=== PATIENT | male | born 1950 | race Caucasian/White ===

== ENCOUNTER 2019-02-15 14:16 | Emergency (ER) | payer OTHER ==
[~2019-02-15] VITALS: Ht 175.3 cm; Wt 103.0 kg
[~2019-02-15 14:16] MED LIST: ASPI81EC; ASPI81EC PO; ATEN25; ATEN25 PO; FOLI1 PO; GABA100 PO; GLIP2.5ER PO; HYDACE10B PO; INSR10I SUBQ; METF500 PO; NITR.3SL; NITR.4TPA; [UNRECOGNIZED DRUG - CODE] TOP
[2019-02-15] MEDS ORDERED: ADAL40PEN SC (14:48)
[2019-02-15] MEDS ORDERED: ATOR80 PO (14:49)
[2019-02-15] MEDS ORDERED: ALBU90OI INH (14:49)
[2019-02-15] MEDS ORDERED: BUDE6HFA INH (14:50)
[2019-02-15] MEDS ORDERED: CALCIPOTRIENE60 G1 TOP (14:50)
[2019-02-15] MEDS ORDERED: Clobetasol Emol15 GM TOP (14:52)
[2019-02-15] MEDS ORDERED: CLOP75 PO (14:52)
[2019-02-15] MEDS ORDERED: DOCU100 PO (14:53)
[2019-02-15] MEDS ORDERED: Artificial Tear15 ML RIGHTEYE (14:53)
[2019-02-15] MEDS ORDERED: FURO20 PO (14:54)
[2019-02-15] MEDS ORDERED: DULO60 PO (14:54)
[2019-02-15] MEDS ORDERED: GABA400 PO (14:54)
[2019-02-15] MEDS ORDERED: NOVOLOG FL100 UNIT/1 SC (14:55)
[2019-02-15] MEDS ORDERED: BASAGLAR K100 UNIT/1 SC (14:55)
[2019-02-15] MEDS ORDERED: KETO15TC SC (14:56)
[2019-02-15 14:57] LABS: BASOPHILS ABSOLUTE AUTO 0.03 K/mm3 (0.00-0.23); BASOPHILS PERCENT AUTO 0 % (0-2); EOSINOPHILS ABSOLUTE AUTO 0.11 K/mm3 (0.00-0.68); EOSINOPHILS PERCENT AUTO 1 % (0-6); Hematocrit 45.1 % (37.0-53.0); Hemoglobin 14.8 g/dL (13.5-17.5); IMMATURE GRAN ABSOLUTE AUTO 0.02 K/mm3 (0.00-0.10); IMMATURE GRAN PERCENT AUTO 0 % (0-1); LYMPHOCYTES ABSOLUTE AUTO 2.52 K/mm3 (0.84-5.20); LYMPHOCYTES PERCENT AUTO 30 % (21-46); MONOCYTES ABSOLUTE AUTO 0.72 K/mm3 (0.16-1.47); MONOCYTES PERCENT AUTO 9 % (4-13); Mean Corpuscular HGB 31.2 pg (26.0-34.0); Mean Corpuscular HGB Conc 32.8 g/dL (31.5-36.5); Mean Corpuscular Volume 95 fL (80-100); Mean Platelet Volume 10.3 fL (9.1-12.4); NEUTROPHILS ABSOLUTE AUTO 5.06 K/mm3 (1.96-9.15); NEUTROPHILS PERCENT AUTO 60 % (41-73); Platelet Count 120 K/mm3 (150-400); RDW Coefficient Variation 13.8 % (11.7-14.2); RDW Standard Deviation 48.3 fL (35.1-46.3); Red Blood Cell Count 4.75 M/mm3 (4.30-5.90); White Blood Cell Count 8.46 K/mm3 (4.00-11.30)
[2019-02-15] MEDS ORDERED: Ketoconazole120 ML TOP (14:57)
[2019-02-15] MEDS ORDERED: LUBRICANT EYE RIGHTEYE (14:58)
[2019-02-15] MEDS ORDERED: Metformin HCl1000 MG PO (14:59)
[2019-02-15] MEDS ORDERED: Primidone50 MG PO (14:59)
[2019-02-15] MEDS ORDERED: PROP120ER PO (14:59)
[2019-02-15] MEDS ORDERED: TERA5 PO (15:00)
[2019-02-15] MEDS ORDERED: RANOLAZINE ER1000 MG PO (15:00)
[2019-02-15] MEDS ORDERED: Norco 7.5-3251 EACH PO (17:06)
== END 2019-02-15 17:48 | disposition home or self-care (01) ==
LOC: ER 14:16
PROVIDERS: Emergency Medicine
DX: R55 Syncope and collapse (principal); S20.211A Contusion of right front wall of thorax, initial encounter; S30.1XXA Contusion of abdominal wall, initial encounter; W01.10XA Fall on same level from slipping, tripping and stumbling with subsequent striking against unspecified object, initial encounter; Z88.8 Allergy status to other drugs, medicaments and biological substances; Z79.899 Other long term (current) drug therapy; Z79.4 Long term (current) use of insulin; E11.9 Type 2 diabetes mellitus without complications; I25.10 Atherosclerotic heart disease of native coronary artery without angina pectoris; I10 Essential (primary) hypertension; F17.200 Nicotine dependence, unspecified, uncomplicated
CPT/HCPCS: 71046; 76700; 85025; 93005; 93010; 96374; 96375; 99285-25; J1170; J2405

== ENCOUNTER 2019-12-12 13:48 | Inpatient (IN) | payer OTHER ==
[~2019-12-12] VITALS: Ht 175.3 cm; Wt 98.8 kg
[~2019-12-12 13:48] MED LIST changes: +ADAL40PEN SC; +ALBU90OI INH; +ATOR80 PO; +Artificial Tear15 ML RIGHTEYE; +BASAGLAR K100 UNIT/1 SC; +BUDE6HFA INH; +CALCIPOTRIENE60 G1 TOP; +CLOP75 PO; +Clobetasol Emol15 GM TOP; +DOCU100 PO; +DULO60 PO; +FURO20 PO; +GABA400 PO; +KETO15TC SC; +Ketoconazole120 ML TOP; +LUBRICANT EYE RIGHTEYE; +Metformin HCl1000 MG PO; +NOVOLOG FL100 UNIT/1 SC; +Norco 7.5-3251 EACH PO; +PROP120ER PO; +Primidone50 MG PO; +RANOLAZINE ER1000 MG PO; +TERA5 PO
[2019-12-12 14:13] LABS: BASOPHILS ABSOLUTE AUTO 0.03 K/mm3 (0.00-0.23); BASOPHILS PERCENT AUTO 0 % (0-2); EOSINOPHILS ABSOLUTE AUTO 0.08 K/mm3 (0.00-0.68); EOSINOPHILS PERCENT AUTO 1 % (0-6); Hematocrit 45.2 % (37.0-53.0); Hemoglobin 14.8 g/dL (13.5-17.5); IMMATURE GRAN ABSOLUTE AUTO 0.02 K/mm3 (0.00-0.10); IMMATURE GRAN PERCENT AUTO 0 % (0-1); LYMPHOCYTES ABSOLUTE AUTO 2.35 K/mm3 (0.84-5.20); LYMPHOCYTES PERCENT AUTO 32 % (21-46); MONOCYTES ABSOLUTE AUTO 0.72 K/mm3 (0.16-1.47); MONOCYTES PERCENT AUTO 10 % (4-13); Mean Corpuscular HGB 30.2 pg (26.0-34.0); Mean Corpuscular HGB Conc 32.7 g/dL (31.5-36.5); Mean Corpuscular Volume 92 fL (80-100); Mean Platelet Volume 9.6 fL (9.1-12.4); NEUTROPHILS PERCENT AUTO 57 % (41-73); Platelet Count 123 K/mm3 (150-400); RDW Coefficient Variation 14.9 % (11.7-14.2)
[2019-12-12] MEDS ORDERED: HUMIRA PEN40 MG/0.2 SC (14:15)
[2019-12-12] MEDS ORDERED: CLOP75 PO (14:16)
[2019-12-12] MEDS ORDERED: DOCU100 PO (14:16)
[2019-12-12] MEDS ORDERED: SYMBICORT 160-4.6 GM INH (14:16)
[2019-12-12] MEDS ORDERED: ATORVASTATIN CA40 MG PO (14:16)
[2019-12-12] MEDS ORDERED: DULO60 PO (14:16)
[2019-12-12] MEDS ORDERED: JARDIANCE25 MG PO (14:17)
[2019-12-12] MEDS ORDERED: FURO20 PO (14:17)
[2019-12-12] MEDS ORDERED: GABA400 PO (14:17)
[2019-12-12] MEDS ORDERED: BASAGLAR K100 UNIT/1 SC (14:18)
[2019-12-12] MEDS ORDERED: NOVOLOG FL100 UNIT/3 SC ×2 (14:18→14:19)
[2019-12-12] MEDS ORDERED: NOVOLOG100 UNIT/2 SC (14:19)
[2019-12-12] MEDS ORDERED: GLUCOPHAGE1000 MG PO (14:19)
[2019-12-12] MEDS ORDERED: PROP80ER PO (14:20)
[2019-12-12] MEDS ORDERED: TAMS.4ER PO (14:20)
[2019-12-12] MEDS ORDERED: RANOLAZINE ER1000 M1 PO (14:20)
[2019-12-12] MEDS ORDERED: Primidone50 MG PO (14:20)
[2019-12-12] MEDS ORDERED: SPIRIVA RESPIMAT4 G3 INH (14:21)
[2019-12-12 14:28] LABS: Prothrombin Time Results 10.7 Sec (9.7-11.5)
[2019-12-12 14:35] LABS: Troponin I <0.015 ng/mL (0.000-0.040)
[2019-12-12 14:44] LABS: Alanine Aminotransfer (ALT/SGP 20 U/L (12-78); Albumin, Blood 3.7 g/dL (3.4-5.0); Albumin/Globulin Ratio 1.2 (0.8-1.8); Alk Phos 100 U/L (50-136); Anion Gap 9 mmol/L (6-16); Aspartate Aminotrans (AST/SGOT 8 U/L (12-37); Bilirubin, Total 0.7 mg/dL (0.1-1.0); Blood Urea Nitrogen 19 mg/dL (8-24); CO2, Blood 22 mmol/L (21-32); Calcium, Blood 8.6 mg/dL (8.5-10.1); Chloride, Blood 99 mmol/L (98-108); Creatinine, Blood 1.46 mg/dL (0.60-1.20); Globulin, Blood 3.2 g/dL (2.2-4.0); Glomerular Filtration Rate 51 (60-); Glucose, Blood 681 mg/dL (70-99); Potassium, Blood 5.2 mmol/L (3.5-5.5); Sodium, Blood 130 mmol/L (136-145); Total Protein, Blood 6.9 g/dL (6.4-8.2)
[2019-12-12 16:33] LABS: CPK Creatine Kinase 64 U/L (39-308); Troponin I <0.015 ng/mL (0.000-0.040)
--- NOTE | 2019-12-12 19:09 | NUR ---
SUMMARY Assumed care of pt upon arrival to ICU 2 from [facility] at 1539. Pt taken back to [facility] from emergency department for STEMI work up. Per report from geotechnical laboratory technician staff, no intervention performed during angiogram. On arrival to unit, pt states he is free of chest pain. Pt A&O x 4. Answers questions, follows commands, verbalizes needs. Lungs clear, dim in bases. Pt on 4 LPM NC, which is home dose of O2. SpO2 90% or greater. Pt has sheath in place to right femoral artery. Dressing C/D/I. No bruising, drainage, or hematoma at site. Color, sensation, pulses, capillary refill equal BLE. HR 70s-80s. BP stable. Pt voids into urinal without difficulty. This RN placed call to Dr Fraire at 1645 to discuss blood sugars. Provider not available. Call placed to provider again at 1745; provider not available. Provider reached by charge authorizerJhonathan at 1800. Hospitalist consult ordered. Dr Ledezma in to see pt. High SS Humalog given to patient. Pt provided with finger food tray. Additional orders for blood sugar management placed by provider. Bedside report given to mail order sorter Peyton CRUZ. Groin site assessed by this RN with oncoming RN.
--- NOTE | 2019-12-12 19:30 | NUR ---
ASSUMED CARE OF PATIENT. REPORT RECEIVED FROM OFFGOING RN. RIGHT FEMORAL GROIN SITE ASSESSED BY BOTH RN'S, INCLUDING PULSE CHECK; SITE WNL. PATIENT FINISHING DINNER AT THIS TIME. PTT WNL TO PULL SHEATH. 2044: SHEATH PULLED PER MD ORDER; MANUAL PRESSURE APPLIED X 15 MINUTES WITH HEMOSTASIS ACHIEVED; NO HEMATOMA NOTED; GAUZE 4X4 AND TEGADERM DRESSING APPLIED; PATIENT TOLERATED PROCEDURE WELL. SITE ASSESSED Q15 MINUTES FOR THE NEXT 60 MINUTES.
--- NOTE | 2019-12-12 22:59 | NUR ---
2259: PATIENT'S RHYTHM CHANGED TO ST VERSUS ATRIAL FLUTTER, RATE 120'S; BP STABLE. 2310: PATIENT C/O CHEST PAIN, RIGHT TO MIDDLE WHICH INCREASES WITH INSPIRATION, DESCRIBES SHARP PAIN, RATED 6-7/10. 2315: OBTAINED EKG. 2325: CALLED DR. GUERRA WITH ABOVE INFORMATION. REC'D. ORDER TO GIVEN PATIENT DILTIAZEM 10MG IVP X 2 DOSES, IF FIRST DOSE INEFFECTIVE FOR HR;IF AFTER TWO DOSES OF IV PUSH DILTIAZEM GIVEN AND HR STILL TACHY, START DILTIAZEM DRIP IV AT 10MG /HR; IF CHEST PAIN PERSISTS, MORPHINE SULFATE 2MG IV X 1 DOSE PRN. 2345: PATIENT GIVEN FIRST DOSE OF DILTIAZEM 10MG IVP; HR HIGH 90'S; C.P. 6/10. 0020: PATIENT GIVEN SECOND DOSE OF DILTIAZEM 10MG IVP; HR MID 90'S; C.P. 3/10.
[2019-12-13 00:26] LABS: Troponin I 0.123 ng/mL (0.000-0.040)
--- NOTE | 2019-12-13 00:45 | NUR ---
0045: PATIENT APPEARS TO BE SLEEPING COMFORTABLE. BP STABLE. HR REMAINS LOW TO MID 90'S.
--- NOTE | 2019-12-13 06:12 | NUR ---
SHIFT SUMMARY: PATIENT SLEPT MOST OF THE NIGHT. NO CHEST PAIN REPORTED SINCE 0; RHYTHM SR WITH BBB, RATE 90'S. RIGHT GROIN SITE SOFT, NO HEMATOMA NOTED; DRESSING D/I. OXYGEN REMAINS AT 4L/MIN VIA NASAL CANNULA (PATIENT'S HOME O2 AMOUNT) WITH SATS LOW 90'S. CONTINUE CURRENT POC.
[2019-12-13 08:40] LABS: Hematocrit 48.4 % (37.0-53.0); Mean Corpuscular HGB 30.3 pg (26.0-34.0); Mean Corpuscular HGB Conc 33.1 g/dL (31.5-36.5); Mean Corpuscular Volume 92 fL (80-100); Mean Platelet Volume 9.6 fL (9.1-12.4); Platelet Count 128 K/mm3 (150-400); RDW Coefficient Variation 15.2 % (11.7-14.2); RDW Standard Deviation 50.6 fL (35.1-46.3); Red Blood Cell Count 5.28 M/mm3 (4.30-5.90)
[2019-12-13 08:53] LABS: Anion Gap 9 mmol/L (6-16); Blood Urea Nitrogen 18 mg/dL (8-24); Bun/Creatinine Ratio 15.1 (12.0-20.0); CO2, Blood 22 mmol/L (21-32); Calcium, Blood 8.6 mg/dL (8.5-10.1); Chloride, Blood 104 mmol/L (98-108); Creatinine, Blood 1.19 mg/dL (0.60-1.20); Glomerular Filtration Rate >60 (60-); Glucose, Blood 372 mg/dL (70-99); Potassium, Blood 4.7 mmol/L (3.5-5.5); Sodium, Blood 135 mmol/L (136-145)
[2019-12-13 09:13] LABS: Creatine Kinase MB 4.4 ng/mL (0.0-3.6); Creatine Kinase MB Index 7.5 (0.0-4.0)
[2019-12-13 09:31] LABS: Troponin I 0.515 ng/mL (0.000-0.040)
--- NOTE | 2019-12-13 11:39 | NUR ---
Echocardiogram completed.
--- NOTE | 2019-12-13 11:52 | NUR ---
REASSESSMENT PT GOT UP INTO THE CHAIR THIS MORNING AND HAS BEEN SITTING UP SINCE. HIS GROIN SITES REMAIN STABLE. THERE IS ONE SPOT ON THE OUTER EDGE THAT WAS TENDER TO PALPATION AND STILL IS, BUT THAT SITE IS STILL SOFT AND HAS NOT GROWN. LUNGS ARE DIM BUT CLEAR, ON HOME O2 OF 4L/NC. REMAINS SR/ST IN THE 90-LOW 100S, RECEIVING PO DILTIAZEM. NO EPISODES OF CHEST PAIN. VOIDING WITHOUT DIFFICULTY. EATING AND DRINKING. BLOOD SUGAR WAS ELEVATED AT LUNCH AGAIN. DISCUSSED WITH DR. CHAUDHRY. PT GOT HIS LONG ACTING INSULIN ONLY A COUPLE HOURS AGO SO GIVE SS DOSE AND CONTINUE TO MONITOR.
[2019-12-13 17:03] LABS: Troponin I 0.735 ng/mL (0.000-0.040)
--- NOTE | 2019-12-13 17:03 | NUR ---
SHIFT SUMMARY PT HAS DONE WELL THROUGHOUT THE DAY WITH NO EPISODES OF SVT OR CHEST PAIN. HE HAS BEEN SR-ST WITH RATES IN THE 90 TO LOW 100S, BP HAS BEEN STABLE. R GROIN SITE REMAINS C/D/I, SOFT WITH NO HEMATOMA. HE HAS AMBULATED IN THE ROOM AND SPENT THE MAJORITY OF THE DAY SITTING UP IN THE CHAIR. STILL WEARING 4L/NC, WHICH HE WEARS AT HOME. HIS SPO2 DID DROP DOWN TO 86 AND QUICKLY BAKC UP TO THE 90S WHILE HE DOZED AT ONE POINT, BUT HE DIDN'T MAINTAIN SPO2 LESS THAN 90 EVER. PT IS EATING WELL, BLOOD SUGAR A LITTLE BETTER THIS AFTERNOON IN THE 300S. PT SPOKE WITH FAMIL AND FRIENDS UPDATING THEM HIMSELF THIS AFTERNOON. HE REFUSED A BATH BUT TOOK OFFERED WARM WASHCLOTHS TO CLEAN A LITTLE BIT. CONTINUING TO MONITOR.
--- NOTE | 2019-12-13 20:00 | NUR ---
ASSUMED CARE: PT A&O, AWAKE IN CHAIR. IN ST AT TIMES. HR 90-100S, SBP 100-110S. DENIES CHEST PAIN AT THIS TIME. LUNG SOUNDS DIM T/O. ON 4L NC. DOES DESAT AT TIMES BUT COMES UP ABOVE 90% QUICKLY. HE DOES BECOME DYSPNEIC WITH EXERTION. CAN STAND AND AMBULATE WITH ASSISTANCE. USING URINAL ON OWN. BILAT PIV. PATENT AND SL. R GROIN ACCESS SITE IS SOFT, NONTENDER. NO OOZING OR HEMATOMA PRESENT. DRESSING IS C/D/I. WILL CONTINUE TO MONITOR
--- NOTE | 2019-12-14 00:01 | NUR ---
PT RESTING COMFORTABLY AT THIS TIME. R GROIN SITE TENDER, SOFT. DRESSING IS C/D/I. SOME BRUISING TO AREA. NO OOZING OR BLEEDING. WILL CONTINUE TO MONITOR
[2019-12-14 03:41] LABS: Anion Gap 6 mmol/L (6-16); Blood Urea Nitrogen 25 mg/dL (8-24); CO2, Blood 25 mmol/L (21-32); Calcium, Blood 8.4 mg/dL (8.5-10.1); Chloride, Blood 104 mmol/L (98-108); Creatinine, Blood 1.25 mg/dL (0.60-1.20); Glomerular Filtration Rate >60 (60-); Glucose, Blood 246 mg/dL (70-99); Sodium, Blood 135 mmol/L (136-145)
--- NOTE | 2019-12-14 04:19 | NUR ---
PT RESTING COMFORTABLY. NO COMPLAINTS SO FAR. DENIES CP, SOB
--- NOTE | 2019-12-14 05:43 | NUR ---
SHIFT SUMMARY: NO ACUTE CHANGES T/O SHIFT. PT SLEPT MAJORITY OF SHIFT. HR IN THE 80S, SBP 100-120S. IN LBBB. REMAINS ON 4L NC. R FEM ACCESS SITE UNCHANGED T/O SHIFT. PEDAL PULSES PRESENT BILAT. DRESSING TO R GROIN SITE C/D/I. WILL PASS REPORT TO ONCOMING SHIFT
--- NOTE | 2019-12-14 08:27 | NUR ---
ASSUMED CARE OF PT AT 0700. REPORT FROM DEE DEE CRUZ. PT RESTING IN BED. WAKES c VERBAL STIMULI. STANDBY ASSIST UP TO CHAIR FOR BREAKFAST. PT DENIES CHEST PAIN, SOB OR OTHER SYMPTOMS. A&OX 4. ANSWERS QUESTIONS APPROPRIATELY. FOLLOWS COMMANDS. LUNGS DIMINISHED IN BASES. PT ON 4L VIA NC, HUMIDIFIED. PT P/W/D. DRESSING TO RIGHT FEMORAL GROIN, C/D/I, NON TENDER. BRUISING IN AREA, SOFT. VSS. PT STATUS CHANGED TO PCU. TROPONINS q8 UNTIL TRENDING DOWN. CHEMBG DISCUSSED c DR CHAUDHRY, PT TAKES JARDIANCE AT HOME, UNABLE TO GET THIS MED DURING THIS ADMISSION. WILL CONTINUE TO MONITOR.
--- NOTE | 2019-12-14 14:24 | NUR ---
ASSUMING CARE OF PT. REPORT FROM IGNACIO. PT SITTING UP IN CHAIR. 4L O2 VIA NC. R GROIN SITE IS STABLE. BRUISING AROUND THE SITE REVIEWED WITH IGNACIO CRUZ AND IS UNCHANGED. NO REQUESTS, CALL LIGHT IN REACH.
--- NOTE | 2019-12-14 18:19 | NUR ---
PT UP TO CHAIR TALKING ON PHONE. R GROIN SITE REMAINS STABLE. NO ACUTE CHANGES SINCE ASSUMING CARE OF PT. PT USES CALL LIGHT APPROPRIATELY. NO SIGN OF DISTRESS.
--- NOTE | 2019-12-14 20:00 | NUR ---
ASSUMED CARE: PT A&O. AWAKE IN CHAIR WATCHING TV. IN SR. HR IN THE 80S, SBP IN THE 150S. LUNGS CLEAR, DIM IN BASES. PT HAS AN OCC COUGH. ON 4L NC. USING URINAL ON OWN. BILAT PIV IN EACH ARM. PATENT AND SL. PT ABLE TO STAND ON OWN. R GROIN ACCESS SITE DRESSING C/D/I. NO OOZING OR BLEEDING AT SITE. GROIN IS SOFT AND NONTENDER. PEDAL PULSES PRESENT BILAT. PT DENIES CP OR SOB (EXCEPT ON EXERTION). WILL CONTINUE TO MONITOR
--- NOTE | 2019-12-15 05:58 | NUR ---
SHIFT SUMMARY: PT SLEPT MAJORITY OF SHIFT. NO ACUTE CHANGES T/O SHIFT. PT IS PLEASANT AND COOPERATIVE WITH ALL CARE. R GROIN SITE REMAINS UNCHANGED T/O SHIFT. DRESSING REMAINS C/D/I. WILL PASS REPORT TO ONCOMING RN
[2019-12-15] MEDS ORDERED: DILT180 PO (08:11)
[2019-12-15] MEDS ORDERED: NITROGLYCERIN TOP (08:16)
--- NOTE | 2019-12-15 10:21 | NUR ---
ASSUMED CARE OF PT AT 0700. REPORT FROM DEE DEE CRUZ. PT RESTING IN CHAIR. A&OX 4. DENIES CHEST PAIN, SOB OR OTHER COMPLAINTS. LUNGS DIMINISHED IN BASES. PT P/W/D. 4L O2 VIA NC, O2 SATS >93%. VSS. DRESSING TO RIGHT FEMORAL ACCESS C/D/I. SOFT, NON TENDER. BRUISING UNCHANGED SINCE YESTERDAY. DR HAUSER AND DR CHAUDHRY ROUNDED. D/C ORDERS WRITTEN. CALL PLACED TO [facility] FOR F/U, [facility] WILL CALL PT D/T AUTHORIZATION ISSUES. [facility] PT VERBALIZED UNDERSTANDING OF D/C INSTRUCTIONS. OTD NAD. ALL BELONGINGS HOME c PT.
== END 2019-12-15 10:15 | disposition home or self-care (01) | DRG 281 ==
LOC: ER 13:48 → ICUE 14:26 → ICUW 14:26 → ICUE 14:33
PROVIDERS: Emergency Medicine; Hospitalist; Internal Medicine; ADMIT Internal Medicine Interventional Cardiology
PROC: 4A023N7 Measurement of Cardiac Sampling and Pressure, Left Heart, Percutaneous Approach (ICD-10-PCS; principal; 2019-12-12)
PROC: B211YZZ Fluoroscopy of Multiple Coronary Arteries using Other Contrast (ICD-10-PCS; 2019-12-12)
PROC: B218YZZ Fluoroscopy of Left Internal Mammary Bypass Graft using Other Contrast (ICD-10-PCS; 2019-12-12)
PROC: B518YZZ Fluoroscopy of Superior Vena Cava using Other Contrast (ICD-10-PCS; 2019-12-12)
DX: I21.3 ST elevation (STEMI) myocardial infarction of unspecified site (principal); I47.1 Supraventricular tachycardia; E87.1 Hypo-osmolality and hyponatremia; N17.9 Acute kidney failure, unspecified; E11.40 Type 2 diabetes mellitus with diabetic neuropathy, unspecified; I10 Essential (primary) hypertension; E11.65 Type 2 diabetes mellitus with hyperglycemia; E78.5 Hyperlipidemia, unspecified; J44.9 Chronic obstructive pulmonary disease, unspecified; I25.10 Atherosclerotic heart disease of native coronary artery without angina pectoris; Z95.1 Presence of aortocoronary bypass graft; I44.7 Left bundle-branch block, unspecified; Z87.891 Personal history of nicotine dependence; Z79.02 Long term (current) use of antithrombotics/antiplatelets; Z79.899 Other long term (current) drug therapy; Z99.81 Dependence on supplemental oxygen
CPT/HCPCS: 36415; 71045; 80048; 80053; 82550; 82553; 82947; 84484; 85025; 85027; 85347; 85610; 85730; 93005; 93010; 93306; 93455; 94640; 94760; 96374-59; 97162; 97165; 97535; 99152; 99153; 99285-25; A9270-GY; C1769; C1887; C1894; G0278; J1644; J2250; J2270; J3010; J7030; Q9967

== ENCOUNTER 2020-02-24 13:51 | Emergency (ER) | payer OTHER ==
[~2020-02-24] VITALS: Ht 177.8 cm; Wt 99.8 kg
[~2020-02-24 13:51] MED LIST changes: +ATORVASTATIN CA40 MG PO; +DILT180 PO; +GLUCOPHAGE1000 MG PO; +HUMIRA PEN40 MG/0.2 SC; +JARDIANCE25 MG PO; +NITROGLYCERIN TOP; +NOVOLOG FL100 UNIT/3 SC; +NOVOLOG100 UNIT/2 SC; +PROP80ER PO; +RANOLAZINE ER1000 M1 PO; +SPIRIVA RESPIMAT4 G3 INH; +SYMBICORT 160-4.6 GM INH; +TAMS.4ER PO
[2020-02-24 14:15] LABS: Base Excess Venous -6.4 mmol/L; PCO2 Venous 34.1 mmHg (38-42); PO2 Venous 96.2 mmHg (38-42); pH Blood Venous 7.36 (7.34-7.37)
[2020-02-24 14:33] LABS: BASOPHILS ABSOLUTE AUTO 0.03 K/mm3 (0.00-0.23); BASOPHILS PERCENT AUTO 0 % (0-2); EOSINOPHILS ABSOLUTE AUTO 0.11 K/mm3 (0.00-0.68); EOSINOPHILS PERCENT AUTO 1 % (0-6); Hematocrit 46.4 % (37.0-53.0); Hemoglobin 14.9 g/dL (13.5-17.5); IMMATURE GRAN ABSOLUTE AUTO 0.02 K/mm3 (0.00-0.10); IMMATURE GRAN PERCENT AUTO 0 % (0-1); LYMPHOCYTES ABSOLUTE AUTO 2.17 K/mm3 (0.84-5.20); LYMPHOCYTES PERCENT AUTO 29 % (21-46); MONOCYTES ABSOLUTE AUTO 0.72 K/mm3 (0.16-1.47); MONOCYTES PERCENT AUTO 10 % (4-13); Mean Corpuscular HGB 30.3 pg (26.0-34.0); Mean Corpuscular HGB Conc 32.1 g/dL (31.5-36.5); Mean Corpuscular Volume 94 fL (80-100); NEUTROPHILS ABSOLUTE AUTO 4.56 K/mm3 (1.96-9.15); NEUTROPHILS PERCENT AUTO 60 % (41-73); Platelet Count 121 K/mm3 (150-400); RDW Coefficient Variation 14.6 % (11.7-14.2); RDW Standard Deviation 50.1 fL (35.1-46.3); Red Blood Cell Count 4.92 M/mm3 (4.30-5.90); White Blood Cell Count 7.61 K/mm3 (4.00-11.30)
[2020-02-24 14:51] LABS: Alanine Aminotransfer (ALT/SGP 16 U/L (12-78); Albumin, Blood 3.5 g/dL (3.4-5.0); Albumin/Globulin Ratio 1.1 (0.8-1.8); Alk Phos 92 U/L (50-136); Anion Gap 7 mmol/L (6-16); Aspartate Aminotrans (AST/SGOT 13 U/L (12-37); Bilirubin, Total 0.6 mg/dL (0.1-1.0); Blood Urea Nitrogen 26 mg/dL (8-24); Bun/Creatinine Ratio 21.7 (12.0-20.0); CO2, Blood 20 mmol/L (21-32); Calcium, Blood 9.2 mg/dL (8.5-10.1); Chloride, Blood 108 mmol/L (98-108); Globulin, Blood 3.1 g/dL (2.2-4.0); Glomerular Filtration Rate >60 (60-); Glucose, Blood 256 mg/dL (70-99); Potassium, Blood 4.5 mmol/L (3.5-5.5); Sodium, Blood 135 mmol/L (136-145); Total Protein, Blood 6.6 g/dL (6.4-8.2)
[2020-02-24 16:11] LABS: Source, Urine Clean Catch
[2020-02-24 16:16] LABS: Bilirubin, Urine Neg (Neg); Blood, Urine Neg (Neg); Glucose Qualitative, Urine 4+ (Neg); Ketones, Urine Neg (Neg); Leukocyte Esterase, Urine Neg (Neg); Nitrite, Urine Neg (Neg); Protein, Urine Neg (Neg); Urobilinogen, Urine NORM (Normal)
[2020-02-24 16:24] LABS: Appearance, Urine Clear (Clear); Color, Urine Yellow (P-Yellow)
[2020-02-24 16:30] LABS: U Amphetamine Screen Not Detected; U Barbituate Screen Not Detected; U Benzodiazapine Screen Not Detected; U Buprenorphine Screen Not Detected; U Cannabinoids Screen Not Detected; U Cocaine Screen Not Detected; U Methadone Screen Not Detected; U Methamphetamine Screen Not Detected; U Opiates Screen Not Detected; U Oxycodone Screen Not Detected; U Phencyclidine Screen Not Detected; U Propoxyphene Screen Not Detected
[2020-02-24] MEDS ORDERED: NOVOLOG FL100 UNIT/3 SC (16:43)
[2020-02-24] MEDS ORDERED: RANO500T PO (16:44)
== END 2020-02-24 17:55 | disposition home or self-care (01) ==
LOC: ER 13:51
PROVIDERS: Emergency Medicine
DX: E11.65 Type 2 diabetes mellitus with hyperglycemia (principal); E11.42 Type 2 diabetes mellitus with diabetic polyneuropathy; I10 Essential (primary) hypertension; I25.2 Old myocardial infarction; E78.5 Hyperlipidemia, unspecified; J44.9 Chronic obstructive pulmonary disease, unspecified; I25.810 Atherosclerosis of coronary artery bypass graft(s) without angina pectoris; Z95.1 Presence of aortocoronary bypass graft; Z87.891 Personal history of nicotine dependence; Z79.899 Other long term (current) drug therapy; Z79.4 Long term (current) use of insulin; Z79.02 Long term (current) use of antithrombotics/antiplatelets; Z88.8 Allergy status to other drugs, medicaments and biological substances
CPT/HCPCS: 36415; 70450; 71045; 80053; 81003; 82803; 82947; 84484; 85025; 93005; 93010; 96360; 99285-25; J7030

== ENCOUNTER 2020-06-19 17:39 | Emergency (ER) | payer OTHER, MEDICARE ==
[~2020-06-19] VITALS: Ht 177.8 cm; Wt 151.9 kg
[~2020-06-19 17:39] MED LIST changes: -ATORVASTATIN CA40 MG PO; -DILT180 PO; -GLUCOPHAGE1000 MG PO; -HUMIRA PEN40 MG/0.2 SC; -JARDIANCE25 MG PO; -NITROGLYCERIN TOP; -NOVOLOG100 UNIT/2 SC; -PROP80ER PO; -SPIRIVA RESPIMAT4 G3 INH; -SYMBICORT 160-4.6 GM INH; -TAMS.4ER PO
[2020-06-19 18:47] LABS: BASOPHILS ABSOLUTE AUTO 0.05 K/mm3 (0.00-0.23); BASOPHILS PERCENT AUTO 1 % (0-2); EOSINOPHILS ABSOLUTE AUTO 0.15 K/mm3 (0.00-0.68); EOSINOPHILS PERCENT AUTO 2 % (0-6); Hematocrit 46.5 % (37.0-53.0); Hemoglobin 14.7 g/dL (13.5-17.5); IMMATURE GRAN ABSOLUTE AUTO 0.02 K/mm3 (0.00-0.10); IMMATURE GRAN PERCENT AUTO 0 % (0-1); LYMPHOCYTES ABSOLUTE AUTO 2.19 K/mm3 (0.84-5.20); LYMPHOCYTES PERCENT AUTO 35 % (21-46); MONOCYTES ABSOLUTE AUTO 0.62 K/mm3 (0.16-1.47); MONOCYTES PERCENT AUTO 10 % (4-13); Mean Corpuscular HGB 29.5 pg (26.0-34.0); Mean Corpuscular HGB Conc 31.6 g/dL (31.5-36.5); Mean Corpuscular Volume 93 fL (80-100); Mean Platelet Volume 10.1 fL (9.1-12.4); NEUTROPHILS ABSOLUTE AUTO 3.32 K/mm3 (1.96-9.15); NEUTROPHILS PERCENT AUTO 52 % (41-73); Platelet Count 129 K/mm3 (150-400); RDW Coefficient Variation 15.2 % (11.7-14.2); RDW Standard Deviation 51.6 fL (35.1-46.3); Red Blood Cell Count 4.99 M/mm3 (4.30-5.90); White Blood Cell Count 6.35 K/mm3 (4.00-11.30)
[2020-06-19 19:18] LABS: Alanine Aminotransfer (ALT/SGP 17 U/L (12-78); Albumin, Blood 3.7 g/dL (3.4-5.0); Albumin/Globulin Ratio 1.3 (0.8-1.8); Alk Phos 83 U/L (50-136); Anion Gap 7 mmol/L (6-16); Aspartate Aminotrans (AST/SGOT 5 U/L (12-37); Bilirubin, Total 0.6 mg/dL (0.1-1.0); Blood Urea Nitrogen 21 mg/dL (8-24); Bun/Creatinine Ratio 17.9 (12.0-20.0); CO2, Blood 22 mmol/L (21-32); Calcium, Blood 8.7 mg/dL (8.5-10.1); Chloride, Blood 108 mmol/L (98-108); Creatinine, Blood 1.17 mg/dL (0.60-1.20); Globulin, Blood 2.9 g/dL (2.2-4.0); Glomerular Filtration Rate >60 (60-); Glucose, Blood 234 mg/dL (70-99); Potassium, Blood 4.8 mmol/L (3.5-5.5); Sodium, Blood 137 mmol/L (136-145); Total Protein, Blood 6.6 g/dL (6.4-8.2); Troponin I <0.015 ng/mL (0.000-0.040)
[2020-06-19 19:21] LABS: Influenza A, PCR Negative (NEGATIVE); Influenza B, PCR Negative (NEGATIVE); Resp Syncytial Virus, PCR Negative (NEGATIVE); SARS-Cov-2 (COVID-19) PCR, MMC Negative (NEGATIVE)
[2020-06-19] MEDS ORDERED: ATORVASTATIN CA40 MG PO (19:52)
[2020-06-19] MEDS ORDERED: HUMIRA PEN40 MG/0.2 SC (19:52)
[2020-06-19] MEDS ORDERED: SYMBICORT 160-4.6 GM INH (19:53)
[2020-06-19] MEDS ORDERED: DULO60 PO (19:53)
[2020-06-19] MEDS ORDERED: CLOP75 PO (19:53)
[2020-06-19] MEDS ORDERED: JARDIANCE25 MG PO (19:54)
[2020-06-19] MEDS ORDERED: FURO20 PO (19:54)
[2020-06-19] MEDS ORDERED: GLUCOPHAGE1000 MG PO (19:54)
[2020-06-19] MEDS ORDERED: GABA400 PO (19:54)
[2020-06-19] MEDS ORDERED: TAMS.4ER PO (19:55)
[2020-06-19] MEDS ORDERED: SPIRIVA RESPIMAT4 G3 INH (19:55)
[2020-06-19] MEDS ORDERED: PROP80ER PO (19:55)
[2020-06-19] MEDS ORDERED: Primidone50 MG PO (19:55)
[2020-06-19] MEDS ORDERED: DILTIAZEM 24HR300 M2 PO (19:56)
[2020-06-19] MEDS ORDERED: RANO500T PO (19:57)
[2020-06-19] MEDS ORDERED: NITROGLYCERIN PATCH TD (19:58)
[2020-06-19] MEDS ORDERED: NOVOLOG FL100 UNIT/3 SC (20:00)
[2020-06-19] MEDS ORDERED: BASAGLAR K100 UNIT/6 SC (20:01)
[2020-06-19] MEDS ORDERED: NITROGLYCERIN 2% TOP (20:02)
[2020-06-19] MEDS ORDERED: NITR.4SL SL (20:03)
[2020-06-19] MEDS ORDERED: ALBU90OI INH (20:04)
[2020-06-19] MEDS ORDERED: Prednisone50 MG PO (20:11)
[2020-06-19] MEDS ORDERED: AZIT250 PO (20:11)
[2020-06-19] MEDS ORDERED: EFUDEX40 GM TOP (20:25)
== END 2020-06-19 20:38 | disposition home or self-care (01) ==
LOC: ER 17:39
PROVIDERS: Emergency Medicine
DX: J44.1 Chronic obstructive pulmonary disease with (acute) exacerbation (principal); R09.02 Hypoxemia; E11.9 Type 2 diabetes mellitus without complications; I10 Essential (primary) hypertension; E78.5 Hyperlipidemia, unspecified; E11.42 Type 2 diabetes mellitus with diabetic polyneuropathy; I25.810 Atherosclerosis of coronary artery bypass graft(s) without angina pectoris; Z95.1 Presence of aortocoronary bypass graft; Z79.899 Other long term (current) drug therapy; Z88.8 Allergy status to other drugs, medicaments and biological substances; Z79.02 Long term (current) use of antithrombotics/antiplatelets; Z79.4 Long term (current) use of insulin; Z87.891 Personal history of nicotine dependence
CPT/HCPCS: 0241U; 71045; 80053; 83880; 84484; 85025; 85379; 93005; 93010; 94640; 96374; 99285-25; A9270; J2930

== ENCOUNTER 2020-08-21 15:55 | Emergency (ER) | payer OTHER ==
[~2020-08-21] VITALS: Ht 177.8 cm; Wt 97.1 kg
[~2020-08-21 15:55] MED LIST changes: +ATORVASTATIN CA40 MG PO; +AZIT250 PO; +BASAGLAR K100 UNIT/6 SC; +DILTIAZEM 24HR300 M2 PO; +EFUDEX40 GM TOP; +GLUCOPHAGE1000 MG PO; +HUMIRA PEN40 MG/0.2 SC; +JARDIANCE25 MG PO; +NITR.4SL SL; +NITROGLYCERIN 2% TOP; +NITROGLYCERIN PATCH TD; +PROP80ER PO; +Prednisone50 MG PO; +RANO500T PO; +SPIRIVA RESPIMAT4 G3 INH; +SYMBICORT 160-4.6 GM INH; +TAMS.4ER PO
[2020-08-21 16:30] LABS: BASOPHILS ABSOLUTE AUTO 0.05 K/mm3 (0.00-0.23); BASOPHILS PERCENT AUTO 1 % (0-2); EOSINOPHILS ABSOLUTE AUTO 0.09 K/mm3 (0.00-0.68); EOSINOPHILS PERCENT AUTO 1 % (0-6); Hematocrit 43.9 % (37.0-53.0); Hemoglobin 15.1 g/dL (13.5-17.5); IMMATURE GRAN ABSOLUTE AUTO 0.04 K/mm3 (0.00-0.10); IMMATURE GRAN PERCENT AUTO 1 % (0-1); LYMPHOCYTES ABSOLUTE AUTO 2.34 K/mm3 (0.84-5.20); LYMPHOCYTES PERCENT AUTO 31 % (21-46); MONOCYTES ABSOLUTE AUTO 0.64 K/mm3 (0.16-1.47); MONOCYTES PERCENT AUTO 8 % (4-13); Mean Corpuscular HGB 30.4 pg (26.0-34.0); Mean Corpuscular HGB Conc 34.4 g/dL (31.5-36.5); Mean Corpuscular Volume 88 fL (80-100); Mean Platelet Volume 9.9 fL (9.1-12.4); NEUTROPHILS PERCENT AUTO 59 % (41-73); Platelet Count 137 K/mm3 (150-400); RDW Coefficient Variation 14.6 % (11.7-14.2); RDW Standard Deviation 46.5 fL (35.1-46.3); Red Blood Cell Count 4.97 M/mm3 (4.30-5.90); White Blood Cell Count 7.66 K/mm3 (4.00-11.30)
[2020-08-21 16:41] LABS: International Normalized Ratio 0.96; Prothrombin Time Results 10.3 Sec (9.7-11.5)
[2020-08-21 16:50] LABS: Alanine Aminotransfer (ALT/SGP 17 U/L (12-78); Albumin, Blood 3.6 g/dL (3.4-5.0); Albumin/Globulin Ratio 1.2 (0.8-1.8); Alk Phos 110 U/L (50-136); Anion Gap 7 mmol/L (6-16); Aspartate Aminotrans (AST/SGOT 8 U/L (12-37); Bilirubin, Total 0.7 mg/dL (0.1-1.0); Blood Urea Nitrogen 16 mg/dL (8-24); Bun/Creatinine Ratio 13.9 (12.0-20.0); CO2, Blood 21 mmol/L (21-32); Calcium, Blood 8.4 mg/dL (8.5-10.1); Chloride, Blood 102 mmol/L (98-108); Creatinine, Blood 1.15 mg/dL (0.60-1.20); Glomerular Filtration Rate >60 (60-); Glucose, Blood 396 mg/dL (70-99); Potassium, Blood 4.5 mmol/L (3.5-5.5); Sodium, Blood 130 mmol/L (136-145); Total Protein, Blood 6.6 g/dL (6.4-8.2); Troponin I <0.015 ng/mL (0.000-0.040)
== END 2020-08-21 17:36 | disposition home or self-care (01) ==
LOC: ER 15:55
PROVIDERS: Emergency Medicine
DX: I20.8 Other forms of angina pectoris (principal); I25.10 Atherosclerotic heart disease of native coronary artery without angina pectoris; I10 Essential (primary) hypertension; E78.5 Hyperlipidemia, unspecified; J44.9 Chronic obstructive pulmonary disease, unspecified; E11.42 Type 2 diabetes mellitus with diabetic polyneuropathy; Z79.4 Long term (current) use of insulin; Z79.899 Other long term (current) drug therapy; Z79.02 Long term (current) use of antithrombotics/antiplatelets; Z79.51 Long term (current) use of inhaled steroids; Z87.891 Personal history of nicotine dependence
CPT/HCPCS: 71045; 80053; 84484; 85025; 85610; 93005; 93010; 99285-25

== ENCOUNTER 2020-12-04 19:42 | Emergency (ER) | payer OTHER ==
[~2020-12-04] VITALS: Ht 177.8 cm; Wt 99.8 kg
[2020-12-04 20:27] LABS: BASOPHILS ABSOLUTE AUTO 0.06 K/mm3 (0.00-0.23); BASOPHILS PERCENT AUTO 1 % (0-2); EOSINOPHILS ABSOLUTE AUTO 0.16 K/mm3 (0.00-0.68); EOSINOPHILS PERCENT AUTO 2 % (0-6); Hematocrit 44.2 % (37.0-53.0); Hemoglobin 14.8 g/dL (13.5-17.5); IMMATURE GRAN ABSOLUTE AUTO 0.03 K/mm3 (0.00-0.10); IMMATURE GRAN PERCENT AUTO 0 % (0-1); LYMPHOCYTES ABSOLUTE AUTO 2.34 K/mm3 (0.84-5.20); LYMPHOCYTES PERCENT AUTO 27 % (21-46); MONOCYTES ABSOLUTE AUTO 0.79 K/mm3 (0.16-1.47); MONOCYTES PERCENT AUTO 9 % (4-13); Mean Corpuscular HGB 29.9 pg (26.0-34.0); Mean Corpuscular HGB Conc 33.5 g/dL (31.5-36.5); Mean Corpuscular Volume 89 fL (80-100); Mean Platelet Volume 10.5 fL (9.1-12.4); NEUTROPHILS ABSOLUTE AUTO 5.24 K/mm3 (1.96-9.15); NEUTROPHILS PERCENT AUTO 61 % (41-73); Platelet Count 132 K/mm3 (150-400); RDW Coefficient Variation 14.6 % (11.7-14.2); RDW Standard Deviation 47.6 fL (35.1-46.3); Red Blood Cell Count 4.95 M/mm3 (4.30-5.90); White Blood Cell Count 8.62 K/mm3 (4.00-11.30)
[2020-12-04 20:39] LABS: Alanine Aminotransfer (ALT/SGP 14 U/L (12-78); Albumin, Blood 3.3 g/dL (3.4-5.0); Albumin/Globulin Ratio 1.1 (0.8-1.8); Alk Phos 90 U/L (50-136); Anion Gap 10 mmol/L (6-16); Aspartate Aminotrans (AST/SGOT 9 U/L (12-37); Bilirubin, Total 0.4 mg/dL (0.1-1.0); Blood Urea Nitrogen 18 mg/dL (8-24); Bun/Creatinine Ratio 15.5 (12.0-20.0); CO2, Blood 22 mmol/L (21-32); Calcium, Blood 8.7 mg/dL (8.5-10.1); Chloride, Blood 102 mmol/L (98-108); Creatinine, Blood 1.16 mg/dL (0.60-1.20); Globulin, Blood 3.1 g/dL (2.2-4.0); Glomerular Filtration Rate >60 (60-); Glucose, Blood 403 mg/dL (70-99); Potassium, Blood 4.1 mmol/L (3.5-5.5); Sodium, Blood 134 mmol/L (136-145); Total Protein, Blood 6.4 g/dL (6.4-8.2); Troponin I <0.015 ng/mL (0.000-0.040)
== END 2020-12-04 22:00 | disposition home or self-care (01) ==
LOC: ER 19:42
PROVIDERS: Emergency Medicine
DX: I20.9 Angina pectoris, unspecified (principal); I10 Essential (primary) hypertension; E78.5 Hyperlipidemia, unspecified; J44.9 Chronic obstructive pulmonary disease, unspecified; E11.42 Type 2 diabetes mellitus with diabetic polyneuropathy; Z79.4 Long term (current) use of insulin; Z79.84 Long term (current) use of oral hypoglycemic drugs; Z79.899 Other long term (current) drug therapy; Z87.891 Personal history of nicotine dependence
CPT/HCPCS: 71046; 80053; 83880; 84484; 85025; 93005; 93010; 99285-25

== ENCOUNTER 2020-12-06 17:50 | Emergency (ER) | payer OTHER ==
[~2020-12-06] VITALS: Ht 177.8 cm; Wt 145.2 kg
[2020-12-06 18:33] LABS: BASOPHILS ABSOLUTE AUTO 0.06 K/mm3 (0.00-0.23); BASOPHILS PERCENT AUTO 1 % (0-2); EOSINOPHILS ABSOLUTE AUTO 0.13 K/mm3 (0.00-0.68); EOSINOPHILS PERCENT AUTO 2 % (0-6); Hematocrit 44.8 % (37.0-53.0); IMMATURE GRAN ABSOLUTE AUTO 0.02 K/mm3 (0.00-0.10); IMMATURE GRAN PERCENT AUTO 0 % (0-1); LYMPHOCYTES ABSOLUTE AUTO 2.56 K/mm3 (0.84-5.20); LYMPHOCYTES PERCENT AUTO 31 % (21-46); MONOCYTES ABSOLUTE AUTO 0.77 K/mm3 (0.16-1.47); MONOCYTES PERCENT AUTO 9 % (4-13); Mean Corpuscular HGB 29.5 pg (26.0-34.0); Mean Corpuscular HGB Conc 33.5 g/dL (31.5-36.5); Mean Corpuscular Volume 88 fL (80-100); NEUTROPHILS ABSOLUTE AUTO 4.71 K/mm3 (1.96-9.15); NEUTROPHILS PERCENT AUTO 57 % (41-73); Platelet Count 134 K/mm3 (150-400); RDW Coefficient Variation 14.5 % (11.7-14.2); RDW Standard Deviation 46.5 fL (35.1-46.3); Red Blood Cell Count 5.09 M/mm3 (4.30-5.90); White Blood Cell Count 8.25 K/mm3 (4.00-11.30)
[2020-12-06 18:51] LABS: Alanine Aminotransfer (ALT/SGP 15 U/L (12-78); Albumin, Blood 3.5 g/dL (3.4-5.0); Albumin/Globulin Ratio 1.1 (0.8-1.8); Alk Phos 87 U/L (50-136); Anion Gap 8 mmol/L (6-16); Aspartate Aminotrans (AST/SGOT 10 U/L (12-37); Bilirubin, Total 0.4 mg/dL (0.1-1.0); Blood Urea Nitrogen 18 mg/dL (8-24); Bun/Creatinine Ratio 15.3 (12.0-20.0); CO2, Blood 23 mmol/L (21-32); Calcium, Blood 8.7 mg/dL (8.5-10.1); Chloride, Blood 103 mmol/L (98-108); Creatinine, Blood 1.18 mg/dL (0.60-1.20); Globulin, Blood 3.1 g/dL (2.2-4.0); Glomerular Filtration Rate >60 (60-); Glucose, Blood 241 mg/dL (70-99); Potassium, Blood 4.2 mmol/L (3.5-5.5); Sodium, Blood 134 mmol/L (136-145); Total Protein, Blood 6.6 g/dL (6.4-8.2); Troponin I <0.015 ng/mL (0.000-0.040)
== END 2020-12-06 21:43 | disposition home or self-care (01) ==
LOC: ER 17:50
PROVIDERS: Emergency Medicine
DX: R55 Syncope and collapse (principal); Z79.899 Other long term (current) drug therapy; Z79.02 Long term (current) use of antithrombotics/antiplatelets; Z79.84 Long term (current) use of oral hypoglycemic drugs
CPT/HCPCS: 70450; 71045; 80053; 84484; 85025; 93005; 93010; 99284-25

== ENCOUNTER 2021-10-07 20:15 | Emergency (ER) | payer OTHER ==
[~2021-10-07] VITALS: Ht 175.3 cm; Wt 97.1 kg
[2021-10-07 20:53] LABS: BASOPHILS ABSOLUTE AUTO 0.04 K/mm3 (0.00-0.23); BASOPHILS PERCENT AUTO 1 % (0-2); EOSINOPHILS ABSOLUTE AUTO 0.15 K/mm3 (0.00-0.68); EOSINOPHILS PERCENT AUTO 2 % (0-6); Hematocrit 45.3 % (37.0-53.0); Hemoglobin 14.1 g/dL (13.5-17.5); IMMATURE GRAN ABSOLUTE AUTO 0.04 K/mm3 (0.00-0.10); IMMATURE GRAN PERCENT AUTO 1 % (0-1); LYMPHOCYTES ABSOLUTE AUTO 2.28 K/mm3 (0.84-5.20); LYMPHOCYTES PERCENT AUTO 30 % (21-46); MONOCYTES ABSOLUTE AUTO 0.65 K/mm3 (0.16-1.47); MONOCYTES PERCENT AUTO 9 % (4-13); Mean Corpuscular HGB 28.4 pg (26.0-34.0); Mean Corpuscular HGB Conc 31.1 g/dL (31.5-36.5); Mean Corpuscular Volume 91 fL (80-100); Mean Platelet Volume 9.6 fL (9.1-12.4); NEUTROPHILS ABSOLUTE AUTO 4.41 K/mm3 (1.96-9.15); NEUTROPHILS PERCENT AUTO 58 % (41-73); Platelet Count 100 K/mm3 (150-400); RDW Coefficient Variation 14.7 % (11.7-14.2); RDW Standard Deviation 48.9 fL (35.1-46.3); Red Blood Cell Count 4.97 M/mm3 (4.30-5.90); White Blood Cell Count 7.57 K/mm3 (4.00-11.30)
[2021-10-07 21:03] LABS: Albumin, Blood 3.4 g/dL (3.4-5.0); Albumin/Globulin Ratio 1.3 (0.8-1.8); Bilirubin, Total 0.4 mg/dL (0.1-1.0); Bun/Creatinine Ratio 19.7 (12.0-20.0); Creatinine, Blood 1.17 mg/dL (0.60-1.20); Globulin, Blood 2.7 g/dL (2.2-4.0); Potassium, Blood 4.8 mmol/L (3.5-5.5); Total Protein, Blood 6.1 g/dL (6.4-8.2)
[2021-10-07 21:42] LABS: Source, Urine Clean Catch
[2021-10-07 21:49] LABS: Bilirubin, Urine Neg (Neg); Blood, Urine Neg (Neg); Glucose Qualitative, Urine 4+ (Neg); Ketones, Urine Neg (Neg); Leukocyte Esterase, Urine Neg (Neg); Nitrite, Urine Neg (Neg); Protein, Urine 2+ (Neg); Urobilinogen, Urine NORM (Normal)
[2021-10-07 22:31] LABS: Appearance, Urine Clear (Clear); Color, Urine Yellow (P-Yellow)
[2021-10-07 22:36] LABS: Bacteria Few /hpf; Hyaline Casts 0-2 /lpf (0-2); Red Blood Cells, Urine 0-2 /hpf (0-2); Squamous Epithelial Cells Few /hpf (Few); White Blood Cells, Urine 0-2 /hpf (0-5)
== END 2021-10-07 22:51 | disposition home or self-care (01) ==
LOC: ER 20:15
PROVIDERS: Emergency Medicine
DX: E11.649 Type 2 diabetes mellitus with hypoglycemia without coma (principal); I25.10 Atherosclerotic heart disease of native coronary artery without angina pectoris; I10 Essential (primary) hypertension; E11.42 Type 2 diabetes mellitus with diabetic polyneuropathy; J44.9 Chronic obstructive pulmonary disease, unspecified; E78.5 Hyperlipidemia, unspecified; I25.2 Old myocardial infarction; Z95.1 Presence of aortocoronary bypass graft; Z79.4 Long term (current) use of insulin; Z79.02 Long term (current) use of antithrombotics/antiplatelets; Z79.899 Other long term (current) drug therapy
CPT/HCPCS: 80053; 81001; 82947; 85025

== ENCOUNTER 2022-04-20 10:18 | Emergency (ER) | payer OTHER ==
[2022-04-20] MEDS ORDERED: ALLEGRA ALLERGY60 MG PO (10:57)
[2022-04-20] MEDS ORDERED: NEOPOLHCSU BOTHEARS (10:57)
== END 2022-04-20 11:15 | disposition home or self-care (01) ==
DX: H60.91 Unspecified otitis externa, right ear (principal); I25.2 Old myocardial infarction; I25.10 Atherosclerotic heart disease of native coronary artery without angina pectoris; I10 Essential (primary) hypertension; E78.5 Hyperlipidemia, unspecified; J44.9 Chronic obstructive pulmonary disease, unspecified; E11.9 Type 2 diabetes mellitus without complications; Z87.891 Personal history of nicotine dependence; Z95.1 Presence of aortocoronary bypass graft; Z79.899 Other long term (current) drug therapy; Z79.4 Long term (current) use of insulin

== ENCOUNTER 2022-06-29 18:05 | Inpatient (IN) | payer OTHER ==
[~2022-06-29] VITALS: Ht 177.8 cm; Wt 90.7 kg
[~2022-06-29 18:05] MED LIST changes: +ALLEGRA ALLERGY60 MG PO; +FURO40 PO; +NEOPOLHCSU BOTHEARS
[2022-06-29 18:35] LABS: BASOPHILS ABSOLUTE AUTO 0.06 K/mm3 (0.00-0.23); BASOPHILS PERCENT AUTO 1 % (0-2); EOSINOPHILS ABSOLUTE AUTO 0.14 K/mm3 (0.00-0.68); EOSINOPHILS PERCENT AUTO 1 % (0-6); Hemoglobin 14.5 g/dL (13.5-17.5); IMMATURE GRAN ABSOLUTE AUTO 0.04 K/mm3 (0.00-0.10); IMMATURE GRAN PERCENT AUTO 0 % (0-1); LYMPHOCYTES ABSOLUTE AUTO 3.22 K/mm3 (0.84-5.20); LYMPHOCYTES PERCENT AUTO 28 % (21-46); MONOCYTES ABSOLUTE AUTO 0.99 K/mm3 (0.16-1.47); MONOCYTES PERCENT AUTO 9 % (4-13); Mean Corpuscular HGB 29.9 pg (26.0-34.0); Mean Corpuscular HGB Conc 32.2 g/dL (31.5-36.5); Mean Corpuscular Volume 93 fL (80-100); Mean Platelet Volume 9.5 fL (9.1-12.4); NEUTROPHILS ABSOLUTE AUTO 6.96 K/mm3 (1.96-9.15); NEUTROPHILS PERCENT AUTO 61 % (41-73); Platelet Count 137 K/mm3 (150-400); RDW Coefficient Variation 15.1 % (11.7-14.2); RDW Standard Deviation 51.6 fL (35.1-46.3); Red Blood Cell Count 4.85 M/mm3 (4.30-5.90); White Blood Cell Count 11.41 K/mm3 (4.00-11.30)
[2022-06-29 18:39] LABS: Base Excess Venous -3.9 mmol/L; Bicarbonate Venous 20.8 mmol/L (24.0-30.0); pH Blood Venous 7.31 (7.34-7.37)
[2022-06-29 18:47] LABS: Bilirubin, Total 0.4 mg/dL (0.1-1.0); Bun/Creatinine Ratio 18.9 (12.0-20.0); Creatinine, Blood 1.27 mg/dL (0.60-1.20); Magnesium, Blood 1.9 mg/dL (1.6-2.4); Potassium, Blood 4.8 mmol/L (3.5-5.5)
[2022-06-29 19:26] LABS: Influenza A, PCR NEGATIVE (NEGATIVE); Influenza B, PCR NEGATIVE (NEGATIVE); Resp Syncytial Virus, PCR NEGATIVE (NEGATIVE); SARS-Cov-2 (COVID-19) PCR, MMC NEGATIVE (NEGATIVE)
[2022-06-30 04:14] LABS: Hematocrit 43.8 % (37.0-53.0); Hemoglobin 14.5 g/dL (13.5-17.5); Mean Corpuscular HGB 29.9 pg (26.0-34.0); Mean Corpuscular HGB Conc 33.1 g/dL (31.5-36.5); Mean Corpuscular Volume 90 fL (80-100); Mean Platelet Volume 9.5 fL (9.1-12.4); Platelet Count 119 K/mm3 (150-400); RDW Coefficient Variation 14.9 % (11.7-14.2); RDW Standard Deviation 49.3 fL (35.1-46.3); Red Blood Cell Count 4.85 M/mm3 (4.30-5.90); White Blood Cell Count 9.77 K/mm3 (4.00-11.30)
[2022-06-30 04:30] LABS: Bun/Creatinine Ratio 25.5 (12.0-20.0); Calcium, Blood 8.1 mg/dL (8.5-10.1); Creatinine, Blood 1.06 mg/dL (0.60-1.20); Potassium, Blood 4.6 mmol/L (3.5-5.5)
--- NOTE | 2022-06-30 05:31 | NUR ---
SHIFT SUMMARY ARRIVAL FROM ED APPROX 2144. A/OX4, BEDREST AT THIS TIME, IND WITH URINAL AT BEDSIDE. SPO2 >92%, BIPAP SETTINGS 12/8 40% FIO2. CRACKLES TO BILATERAL BASES. IV LASIX GIVEN IN ED. TELE SR 70S-80S, DENIES CHEST PAIN/PRESSURE. VSS, NO ACUTE CHANGES AT THIS TIME. BED IN LOWEST POSITION WITH CALL LIGHT IN REACH. WILL CONTINUE TO MONITOR AND REPORT TO ONCOMING RN.
--- NOTE | 2022-06-30 08:30 | NUR ---
PATIENT VERBALIZED THE ONLY VISITOR ALLOWED AT THIS TIME IS SHANI, EX-. PATIENT SPECIFIALLY STATED HE DOES NOT WANT AJAY VISITING. THIS RN SPOKE WITH AJAY WHO PRESENTED OUTSIDE PATIENTS DOOR, RELAYED THAT PATIENT DOES NOT WANT ANY OTHER VISITORS UNLESS SHANI. VISITOR LEFT W/O COMMENT. UPDATED PATIENTS VERBAL RELEASE FORM. NOTE POSTED OUTSIDE PATIENTS DOOR TO PLEASE SEE RN BEFORE ENTERING.
--- NOTE | 2022-06-30 09:20 | NUR ---
PATIENT C/O CHEST PAIN, REQUESTING NEW NITRO PATCH. DENIES SOB & CHEST "PRESSURE". EQUAL STRENGTH IN BUE AT THIS TIME. THIS RN CONTACTED DR SR VIA TELEPHONE, MESSAGE LEFT. WILL CONTINUE TO MONITOR FOR CHANGES.
--- NOTE | 2022-06-30 09:28 | NUR ---
CONTROL AND RECOVERY COMBAT RESCUE SPOKE WITH DR SR. ORDER OBTAINED FOR EKG AND NITRO SUBLINGUAL. PATIENT RATES CHEST PAIN 8/10 AT THIS TIME. EKG DONE, 1 NITRO TAB ADMINISTERED AT 0928. CHEST PAIN 6/10 @ 0931. BLOOD PRESSURE HAD SIGNIFICANT DROP, 115/58 CURRENYLT. CHEST PAIN 0/10 @ 0932.
--- NOTE | 2022-06-30 09:36 | NUR ---
PATIENT C/O CHEST PAIN, REQUESTING NEW NITRO PATCH. DENIES SOB, EQUAL STRENGTH TO BUE AT THIS TIME. THIS RN CALLED DR SR, MESSAGE LEFT REGARDING THIS. WILL CONTINUE TO MONITOR FOR CHANGES.
[2022-06-30] MEDS ORDERED: Isosorbide Mono30 MG PO (10:27)
--- NOTE | 2022-06-30 11:46 | NUR ---
PATIENTS CBG IS 427. GAVE MAX AC DOSE ON PATIENTS SLIDING SCALE ORDERED (LOW SLIDING SCALE). NOTIFIED DR SR. GAVE TELEPHONE ORDERS TO ORDER PATIENTS DOSING HE TAKES AT HOME, WHICH PATEINT REPORTED TO BE 14 UNITS SHORT ACTING BEFORE MEALS, BREAKFAST AND LUNCH, AND 20 UNITS SHORT ACTING BEFORE DINNER.
--- NOTE | 2022-06-30 17:00 | NUR ---
SHIFT SUMMARY BIPAP REMOVED THIS AM, PATIENT O2 SATS MAINTAINING >90% ON 4L O2 VIA NC. VSS T/O SHIFT. PATIENT HAD EPISODE OF CHEST PAIN THIS AM, RESOLVED WITH ONE DOSE OF SL NITRO. CBG'S ELEVATED, INSULIN ADJUSTED TO PATIENTS HOME DOSE FOR QUICK ACTING INSULIN FOR BETTER CBG CONTROL. SBA TO BATHROOM, SHOWER TODAY, TOLERATED WELL. TOLERATING ADA PO DIET. VOIDING IN URINAL INDEPENDENTLY AT BEDISDE. BM TODAY. CALLS APPROPRIATELY, CALL LIGHT IN REACH, BED IN LOW POSITION. WILL REPORT TO ONCOMING RN AT 1900.
[2022-07-01 04:01] LABS: BASOPHILS ABSOLUTE AUTO 0.04 K/mm3 (0.00-0.23); BASOPHILS PERCENT AUTO 0 % (0-2); EOSINOPHILS ABSOLUTE AUTO 0.03 K/mm3 (0.00-0.68); EOSINOPHILS PERCENT AUTO 0 % (0-6); Hematocrit 42.8 % (37.0-53.0); IMMATURE GRAN ABSOLUTE AUTO 0.03 K/mm3 (0.00-0.10); IMMATURE GRAN PERCENT AUTO 0 % (0-1); LYMPHOCYTES ABSOLUTE AUTO 2.93 K/mm3 (0.84-5.20); LYMPHOCYTES PERCENT AUTO 25 % (21-46); MONOCYTES ABSOLUTE AUTO 0.87 K/mm3 (0.16-1.47); MONOCYTES PERCENT AUTO 8 % (4-13); Mean Corpuscular HGB 29.9 pg (26.0-34.0); Mean Corpuscular HGB Conc 32.7 g/dL (31.5-36.5); Mean Corpuscular Volume 92 fL (80-100); Mean Platelet Volume 9.5 fL (9.1-12.4); NEUTROPHILS ABSOLUTE AUTO 7.75 K/mm3 (1.96-9.15); NEUTROPHILS PERCENT AUTO 66 % (41-73); Platelet Count 127 K/mm3 (150-400); RDW Coefficient Variation 14.8 % (11.7-14.2); RDW Standard Deviation 49.9 fL (35.1-46.3); Red Blood Cell Count 4.68 M/mm3 (4.30-5.90); White Blood Cell Count 11.65 K/mm3 (4.00-11.30)
[2022-07-01 04:31] LABS: Albumin, Blood 2.7 g/dL (3.4-5.0); Anion Gap 5 mmol/L (6-16); Blood Urea Nitrogen 35 mg/dL (8-24); Bun/Creatinine Ratio 34.3 (12.0-20.0); CO2, Blood 27 mmol/L (21-32); Calcium, Blood 8.3 mg/dL (8.5-10.1); Chloride, Blood 107 mmol/L (98-108); Creatinine, Blood 1.02 mg/dL (0.60-1.20); Glomerular Filtration Rate 78 (60-); Glucose, Blood 101 mg/dL (70-99); Phosphorus, Blood 3.3 mg/dL (2.5-4.9); Potassium, Blood 4.2 mmol/L (3.5-5.5); Sodium, Blood 139 mmol/L (136-145)
--- NOTE | 2022-07-01 06:27 | NUR ---
SHIFT SUMMARY A/OX4, SBA TO BATHROOM. USES URINAL IND AT BEDSIDE. SPO2 >92% ON 4L NC. BP STABLE; DENIES CHEST PAIN/PRESSURE. VSS, NO ACUTE CHANGES AT THIS TIME. BED IN LOWEST POSITION WITH CALL LIGHT IN REACH. WILL CONTINUE TO MONITOR AND REPORT TO ONCOMING RN.
[2022-07-01] MEDS ORDERED: ASPI81CH PO (12:47)
[2022-07-01] MEDS ORDERED: LISI5 PO (14:38)
--- NOTE | 2022-07-01 15:04 | NUR ---
SHIFT SUMMARY/DISCHARGE PT A/O X4, PLEASANT AND COOPERATIVE. PT WAS ON TELE AND NSR IN THE 70'S-80'S MAJORITY OF SHIFT. PT HAD 8 BEATS OF VTACH THIS AFTERNOON. FUNERAL LIMOUSINE DRIVER CONFIRMED VTACH IN ALL LEADS. PT WAS ASYMPTOMATIC, DR YOUSSEF NOTIFIED. PT PLACED ON ZIO PATCH TODAY AND TO FOLLOW UP WITH THE [facility]. PT WAS ON 4L NC AND O2 SAT 90-94% AT REST. PT WOULD DROP TO 88% ON 4L WITH EXERTION. O2 EVAL ORDERED AND PT TO BE ON 4-6L NC AT HOME. PT ALREADY HAS O2 AT HOME. PT ABLE TO AMBULATE WITH WALKER AND TOLERATED EVAL WELL. PT DENIED ANY ANGINA, CHEST PRESSURE OR INCREASED SOB T/O SHIFT. DC INSTRUCTIONS DISCUSSED, PT HAD NO FURTHER QUESTIONS. IV D/C'D WITH TIP INTACT. PT OUT OF ROOM IN WHEELCHAIR. EX TO TAKE PT HOME.
== END 2022-07-01 14:58 | disposition home or self-care (01) | DRG 291 ==
LOC: ER 18:05 → PCU 21:05
PROVIDERS: Internal Medicine; Nurse Practitioner Acute Care; Student in an Organized Health Care Education/Training Program; ADMIT Internal Medicine
PROC: 3E02340 Introduction of Influenza Vaccine into Muscle, Percutaneous Approach (ICD-10-PCS; principal; 2022-06-29)
PROC: 5A09357 Assistance with Respiratory Ventilation, Less than 24 Consecutive Hours, Continuous Positive Airway Pressure (ICD-10-PCS; 2022-06-29)
DX: I11.0 Hypertensive heart disease with heart failure (principal); I50.31 Acute diastolic (congestive) heart failure; J96.21 Acute and chronic respiratory failure with hypoxia; J96.22 Acute and chronic respiratory failure with hypercapnia; J44.1 Chronic obstructive pulmonary disease with (acute) exacerbation; I25.10 Atherosclerotic heart disease of native coronary artery without angina pectoris; E78.5 Hyperlipidemia, unspecified; I35.0 Nonrheumatic aortic (valve) stenosis; E11.42 Type 2 diabetes mellitus with diabetic polyneuropathy; Z60.2 Problems related to living alone; Z20.822 Contact with and (suspected) exposure to COVID-19; Z95.1 Presence of aortocoronary bypass graft; Z23 Encounter for immunization; Z79.899 Other long term (current) drug therapy; Z79.02 Long term (current) use of antithrombotics/antiplatelets; Z79.01 Long term (current) use of anticoagulants; Z79.84 Long term (current) use of oral hypoglycemic drugs; Z79.4 Long term (current) use of insulin; Z79.51 Long term (current) use of inhaled steroids; I25.2 Old myocardial infarction; Z99.81 Dependence on supplemental oxygen; Z87.891 Personal history of nicotine dependence; Z86.79 Personal history of other diseases of the circulatory system
CPT/HCPCS: 0241U; 36415; 71045; 80048; 80053; 80069; 82803; 82947; 83735; 83880; 84145; 84484; 85025; 85027; 90686; 93005; 93010; 93246; 93306; 94640; 94644; 94645; 94660; 94664; 94761; 94762; 96365; 96375; 99285-25; A9270; J1650; J1815; J1940; J2765; J2930; J7626

== ENCOUNTER 2022-12-23 18:46 | Inpatient (IN) | payer OTHER ==
[~2022-12-23] VITALS: Ht 177.8 cm; Wt 96.0 kg
[~2022-12-23 18:46] MED LIST changes: +ASPI81CH PO; -BASAGLAR K100 UNIT/6 SC; +INSULIN GL100 UNIT/2 SC; +Isosorbide Mono30 MG PO; +LISI5 PO
[2022-12-23 19:14] LABS: BASOPHILS ABSOLUTE AUTO 0.06 K/mm3 (0.00-0.23); BASOPHILS PERCENT AUTO 1 % (0-2); EOSINOPHILS ABSOLUTE AUTO 0.18 K/mm3 (0.00-0.68); EOSINOPHILS PERCENT AUTO 2 % (0-6); Hematocrit 42.6 % (37.0-53.0); IMMATURE GRAN ABSOLUTE AUTO 0.02 K/mm3 (0.00-0.10); IMMATURE GRAN PERCENT AUTO 0 % (0-1); LYMPHOCYTES ABSOLUTE AUTO 3.16 K/mm3 (0.84-5.20); LYMPHOCYTES PERCENT AUTO 33 % (21-46); MONOCYTES ABSOLUTE AUTO 0.89 K/mm3 (0.16-1.47); MONOCYTES PERCENT AUTO 9 % (4-13); Mean Corpuscular HGB 29.7 pg (26.0-34.0); Mean Corpuscular HGB Conc 32.9 g/dL (31.5-36.5); Mean Corpuscular Volume 90 fL (80-100); Mean Platelet Volume 9.6 fL (9.1-12.4); NEUTROPHILS ABSOLUTE AUTO 5.35 K/mm3 (1.96-9.15); NEUTROPHILS PERCENT AUTO 55 % (41-73); Platelet Count 124 K/mm3 (150-400); RDW Coefficient Variation 15.2 % (11.7-14.2); RDW Standard Deviation 49.9 fL (35.1-46.3); Red Blood Cell Count 4.71 M/mm3 (4.30-5.90); White Blood Cell Count 9.66 K/mm3 (4.00-11.30)
[2022-12-23 19:24] LABS: International Normalized Ratio 1.01; Prothrombin Time Results 10.6 Sec (9.7-11.5)
[2022-12-23 19:35] LABS: Albumin, Blood 3.5 g/dL (3.4-5.0); Albumin/Globulin Ratio 1.2 (0.8-1.8); Bilirubin, Total 0.6 mg/dL (0.1-1.0); Bun/Creatinine Ratio 22.1 (12.0-20.0); Calcium, Blood 8.4 mg/dL (8.5-10.1); Creatinine, Blood 1.99 mg/dL (0.60-1.20); Globulin, Blood 2.8 g/dL (2.2-4.0); Potassium, Blood 5.2 mmol/L (3.5-5.5); Total Protein, Blood 6.3 g/dL (6.4-8.2)
--- NOTE | 2022-12-23 23:02 | NUR ---
PT CHART REVIEWED FOR ADMIT
[2022-12-24] VITALS (9 sets, daily range): BP systolic 105–167; BP diastolic 64–91
--- NOTE | 2022-12-24 05:47 | NUR ---
PT ORIENTED X4, COOPERATIVE WITH CARE, CALLS TO MAKE NEEDS KNOWN. ORTHOSTATICS COMPLETED THIS MORNING, SCATTERED SKIN TEARS CLEANSED AND BANDAGED. TELE RUNNING SR IN THE 60'S, 2X ASSIST WHEN UP TO USE URINAL. NO OTHER ISSUES TO REPORT.
[2022-12-24 06:01] LABS: Albumin, Blood 3.3 g/dL (3.4-5.0); Albumin/Globulin Ratio 1.3 (0.8-1.8); Bilirubin, Total 0.5 mg/dL (0.1-1.0); Bun/Creatinine Ratio 22.5 (12.0-20.0); Creatinine, Blood 1.73 mg/dL (0.60-1.20); Globulin, Blood 2.5 g/dL (2.2-4.0); Potassium, Blood 4.7 mmol/L (3.5-5.5); Total Protein, Blood 5.8 g/dL (6.4-8.2)
--- NOTE | 2022-12-24 14:15 | NUR ---
ORTHOSTATIC VITAL SIGNS LYING: B/P 137/67 HR 70 SITTING: B/P 117/79 HR 75 STANDING: B/P 97/67 HR 77
--- NOTE | 2022-12-24 18:35 | NUR ---
PATIENT PLEASANT AND COOPERATIVE WITH CARE. UP WITH ASSIST TO CHAIR. ORTHOSTATICS TAKEN THIS AFTERNOON AND WERE POSITIVE. DR. SMITH NOTIFIED AND PLAN IS TO INCREASE HYDROCORTISONE. PATIENT DENIES ANY PAIN OR DISCOMFORT. ACHS BLOOD SUGARS, COVERAGE PER SS. MAINTAINING SATS ON RA. CALLS APPROPRIATELY FOR ASSISTANCE.
--- NOTE | 2022-12-25 03:55 | NUR ---
END OF SHIFT SUMMARY PT CALM AND COOPERATIVE WITH CARE PROVIDED. PT A&O x4. VSS, PT ON TELEMETRY WITH SR 72/BMP. PT DENIED ANY PAIN OR DISCOMFORT. PT EDUCATED ON FALL PREVENTION AND TO CALL FOR ASSISTANCE WITH AMBULATING. NO C/O DIZZINESS OR LIGHTHEADEDNESS WHILE AMBULATING TO BATHROOM. PT ABLE TO MAKE NEEDS KNOWN. CALL LIGHT WITHIN REACH. WCTM.
[2022-12-25 04:28] VITALS: BP 145/78
[2022-12-25 05:16] LABS: Hematocrit 43.6 % (37.0-53.0); Hemoglobin 14.4 g/dL (13.5-17.5); Mean Corpuscular HGB 29.6 pg (26.0-34.0); Mean Corpuscular Volume 90 fL (80-100); Mean Platelet Volume 9.3 fL (9.1-12.4); Platelet Count 99 K/mm3 (150-400); RDW Standard Deviation 49.3 fL (35.1-46.3); Red Blood Cell Count 4.87 M/mm3 (4.30-5.90); White Blood Cell Count 7.97 K/mm3 (4.00-11.30)
[2022-12-25 05:42] LABS: Albumin, Blood 3.4 g/dL (3.4-5.0); Albumin/Globulin Ratio 1.2 (0.8-1.8); Bilirubin, Total 0.5 mg/dL (0.1-1.0); Bun/Creatinine Ratio 24.3 (12.0-20.0); Calcium, Blood 8.4 mg/dL (8.5-10.1); Creatinine, Blood 1.44 mg/dL (0.60-1.20); Globulin, Blood 2.9 g/dL (2.2-4.0); Potassium, Blood 4.7 mmol/L (3.5-5.5); Total Protein, Blood 6.3 g/dL (6.4-8.2)
[2022-12-25 08:11] VITALS: BP 152/76
[2022-12-25] MEDS ORDERED: FLUDROCORTISON0.1 M1 PO (10:26)
[2022-12-25] MEDS ORDERED: HYDCOR20 PO (10:27)
--- NOTE | 2022-12-25 11:53 | NUR ---
PATIENT D/C'D TO HOME WITH HOME HEALTH. DC INSTRUCTIONS AND EDUCATION DISCUSSED WITH PATIENT AND COPY PROVIDED. [facility]. PATIENT DENIES ANY FURTHER QUESTIONS OR CONCERNS. ORTHOSTATIC VITAL SIGNS AT DISCHARGE: LYING: B/P 154/97 HR 74 SITTING: B/P 151/118 HR 80 STANDING: B/P 138/74 HR 81
== END 2022-12-25 11:41 | disposition home health service (06) | DRG 316 ==
LOC: ER 18:46 → MEDS 18:47 → ENPENDDIS 12-25 10:07 → MEDS 12-25 11:41
PROVIDERS: Family Medicine; Internal Medicine; Student in an Organized Health Care Education/Training Program; ADMIT Internal Medicine
PROC: 3E0234Z Introduction of Serum, Toxoid and Vaccine into Muscle, Percutaneous Approach (ICD-10-PCS; principal; 2022-12-23)
DX: I95.89 Other hypotension (principal); H53.8 Other visual disturbances; E11.42 Type 2 diabetes mellitus with diabetic polyneuropathy; I25.10 Atherosclerotic heart disease of native coronary artery without angina pectoris; Z66 Do not resuscitate; I10 Essential (primary) hypertension; E78.5 Hyperlipidemia, unspecified; R94.31 Abnormal electrocardiogram [ECG] [EKG]; W18.30XA Fall on same level, unspecified, initial encounter; S01.112A Laceration without foreign body of left eyelid and periocular area, initial encounter; I44.0 Atrioventricular block, first degree; R29.6 Repeated falls; G25.0 Essential tremor; L40.9 Psoriasis, unspecified; S60.512A Abrasion of left hand, initial encounter; I25.2 Old myocardial infarction; Z23 Encounter for immunization; Z87.891 Personal history of nicotine dependence; Z79.02 Long term (current) use of antithrombotics/antiplatelets; Z79.899 Other long term (current) drug therapy; Z79.51 Long term (current) use of inhaled steroids; Z79.4 Long term (current) use of insulin; Z79.82 Long term (current) use of aspirin; Z79.84 Long term (current) use of oral hypoglycemic drugs; Z79.811 Long term (current) use of aromatase inhibitors; Z99.81 Dependence on supplemental oxygen; Z95.1 Presence of aortocoronary bypass graft
CPT/HCPCS: 36415; 70450; 71046; 72125; 80048; 80053; 82533; 82947; 83880; 84484; 85025; 85027; 85610; 90471; 90714; 90715; 93005; 93010; 96360; 96361; 97110; 97162; 97530; 99285-25; A9270; G0378; J1815; J7030

== ENCOUNTER 2023-01-11 16:29 | Emergency (ER) | payer OTHER ==
[~2023-01-11] VITALS: Ht 177.8 cm; Wt 96.6 kg
[~2023-01-11 16:29] MED LIST changes: +FLUDROCORTISON0.1 M1 PO; +HYDCOR20 PO
[2023-01-11 17:38] LABS: Base Excess Venous -8.5 mmol/L; Bicarbonate Venous 18.3 mmol/L (24.0-30.0); PCO2 Venous 31.8 mmHg (38-42); pH Blood Venous 7.34 (7.34-7.37)
[2023-01-11 17:40] LABS: BASOPHILS ABSOLUTE AUTO 0.01 K/mm3 (0.00-0.23); BASOPHILS PERCENT AUTO 0 % (0-2); EOSINOPHILS ABSOLUTE AUTO 0.02 K/mm3 (0.00-0.68); EOSINOPHILS PERCENT AUTO 0 % (0-6); Hematocrit 42.6 % (37.0-53.0); Hemoglobin 14.2 g/dL (13.5-17.5); IMMATURE GRAN ABSOLUTE AUTO 0.02 K/mm3 (0.00-0.10); IMMATURE GRAN PERCENT AUTO 0 % (0-1); LYMPHOCYTES ABSOLUTE AUTO 1.41 K/mm3 (0.84-5.20); LYMPHOCYTES PERCENT AUTO 21 % (21-46); MONOCYTES ABSOLUTE AUTO 0.65 K/mm3 (0.16-1.47); MONOCYTES PERCENT AUTO 10 % (4-13); Mean Corpuscular HGB 29.2 pg (26.0-34.0); Mean Corpuscular HGB Conc 33.3 g/dL (31.5-36.5); Mean Corpuscular Volume 88 fL (80-100); Mean Platelet Volume 9.4 fL (9.1-12.4); NEUTROPHILS PERCENT AUTO 69 % (41-73); Platelet Count 122 K/mm3 (150-400); RDW Coefficient Variation 14.8 % (11.7-14.2); RDW Standard Deviation 47.7 fL (35.1-46.3); Red Blood Cell Count 4.87 M/mm3 (4.30-5.90); White Blood Cell Count 6.81 K/mm3 (4.00-11.30)
[2023-01-11 17:49] LABS: Influenza A, PCR NEGATIVE (NEGATIVE); Influenza B, PCR NEGATIVE (NEGATIVE); Resp Syncytial Virus, PCR NEGATIVE (NEGATIVE)
[2023-01-11 17:55] LABS: SARS-Cov-2 (COVID-19) PCR, MMC POSITIVE (NEGATIVE)
[2023-01-11 18:05] LABS: Albumin, Blood 3.4 g/dL (3.4-5.0); Bilirubin, Total 0.8 mg/dL (0.1-1.0); Bun/Creatinine Ratio 20.7 (12.0-20.0); Calcium, Blood 8.4 mg/dL (8.5-10.1); Creatinine, Blood 1.16 mg/dL (0.60-1.20); Globulin, Blood 3.3 g/dL (2.2-4.0); Potassium, Blood 4.4 mmol/L (3.5-5.5); Total Protein, Blood 6.7 g/dL (6.4-8.2)
[2023-01-11 22:35] VITALS: BP 101/69
[2023-01-11] MEDS ORDERED: DOXYCYCLINE HY100 M1 PO (23:02)
== END 2023-01-12 00:02 | disposition home or self-care (01) ==
LOC: ER 16:29
PROVIDERS: Emergency Medicine; Student in an Organized Health Care Education/Training Program
DX: U07.1 COVID-19 (principal); J44.9 Chronic obstructive pulmonary disease, unspecified; Z79.899 Other long term (current) drug therapy; Z79.82 Long term (current) use of aspirin; Z79.84 Long term (current) use of oral hypoglycemic drugs; E11.42 Type 2 diabetes mellitus with diabetic polyneuropathy; I25.10 Atherosclerotic heart disease of native coronary artery without angina pectoris; I10 Essential (primary) hypertension; E78.5 Hyperlipidemia, unspecified; Z87.891 Personal history of nicotine dependence
CPT/HCPCS: 0241U; 71046; 74177; 80053; 82803; 83880; 84484; 85025; 93005; 93010; 94640; 94664; 96361; 96374; 99285-25; A9270; J2405; J7030; Q9967

== ENCOUNTER 2023-03-19 08:35 | Day surgery (SDC) | payer OTHER ==
[~2023-03-19] VITALS: Ht 177.8 cm; Wt 91.6 kg
[~2023-03-19 08:35] MED LIST changes: +DOXYCYCLINE HY100 M1 PO
[2023-03-19] MEDS ORDERED: ALBU90OI INH (09:09)
[2023-03-19] MEDS ORDERED: ACET500 (09:09)
[2023-03-19] MEDS ORDERED: SYMBICORT 160-4.6 GM (09:10)
[2023-03-19] MEDS ORDERED: SYNJARDY PO (09:11)
[2023-03-19] MEDS ORDERED: DOCU100 PO (09:11)
[2023-03-19] MEDS ORDERED: DILT180 PO (09:11)
[2023-03-19] MEDS ORDERED: Inderal80 MG PO (09:12)
[2023-03-19] MEDS ORDERED: MIDO5 (09:12)
[2023-03-19] MEDS ORDERED: RANO500T PO (09:13)
[2023-03-19] MEDS ORDERED: TAMS.4ER PO (09:15)
[2023-03-19] MEDS ORDERED: TIOT18 INH (09:15)
[2023-03-19] MEDS ORDERED: TORSE20 PO (09:15)
[2023-03-19] MEDS ORDERED: OZEMPIC0.25 MG/02 SQ (09:16)
[2023-03-19] MEDS ORDERED: TRAZ50 PO (09:16)
--- NOTE | 2023-03-19 09:23 | NUR ---
03/19/23 0923 Patricia Darden TETRACAINE ADMINISTERED TO THE R EYE AT 0912, PLEDGET PLACED AT 0916 BY [facility].THX, PT MARK WELL
[2023-03-19 10:07] VITALS: BP 123/74
--- NOTE | 2023-03-19 10:29 | NUR ---
03/19/23 1029 Kuldip Cheung PT STATES CHARTED B/P READINGS ARE BASELINE FOR HIM. HE WILL MONITOR B/P AT HOME AND FOLLOW UP WITH PCP IF NOT WNL.
== END 2023-03-19 10:22 | disposition home or self-care (01) ==
LOC: ORSCSDS 08:35
PROVIDERS: Ophthalmology
PROC: 08RJ3JZ Replacement of Right Lens with Synthetic Substitute, Percutaneous Approach (ICD-10-PCS; principal; 2023-03-19 10:00)
DX: E11.36 Type 2 diabetes mellitus with diabetic cataract (principal); H25.13 Age-related nuclear cataract, bilateral; H52.201 Unspecified astigmatism, right eye; I10 Essential (primary) hypertension; E11.9 Type 2 diabetes mellitus without complications; I25.10 Atherosclerotic heart disease of native coronary artery without angina pectoris; J44.9 Chronic obstructive pulmonary disease, unspecified; E78.00 Pure hypercholesterolemia, unspecified; Z79.02 Long term (current) use of antithrombotics/antiplatelets; F32.A Depression, unspecified; Z79.899 Other long term (current) drug therapy; Z79.4 Long term (current) use of insulin
CPT/HCPCS: 82947; J2001; J2250; J3010; J3301; J7040; V2632

== ENCOUNTER 2023-03-24 15:17 | Inpatient (IN) | payer OTHER ==
[~2023-03-24] VITALS: Ht 177.8 cm; Wt 90.1 kg
[~2023-03-24 15:17] MED LIST changes: +ACET500; +DILT180 PO; +Inderal80 MG PO; +MIDO5; +OZEMPIC0.25 MG/02 SQ; +SYMBICORT 160-4.6 GM; +SYNJARDY PO; +TIOT18 INH; +TORSE20 PO; +TRAZ50 PO
[2023-03-24 15:35] LABS: BASOPHILS ABSOLUTE AUTO 0.04 K/mm3 (0.00-0.23); BASOPHILS PERCENT AUTO 1 % (0-2); EOSINOPHILS ABSOLUTE AUTO 0.08 K/mm3 (0.00-0.68); EOSINOPHILS PERCENT AUTO 1 % (0-6); Hematocrit 42.2 % (37.0-53.0); Hemoglobin 14.3 g/dL (13.5-17.5); IMMATURE GRAN ABSOLUTE AUTO 0.01 K/mm3 (0.00-0.10); IMMATURE GRAN PERCENT AUTO 0 % (0-1); LYMPHOCYTES ABSOLUTE AUTO 2.22 K/mm3 (0.84-5.20); LYMPHOCYTES PERCENT AUTO 28 % (21-46); MONOCYTES ABSOLUTE AUTO 0.58 K/mm3 (0.16-1.47); MONOCYTES PERCENT AUTO 7 % (4-13); Mean Corpuscular HGB 30.3 pg (26.0-34.0); Mean Corpuscular HGB Conc 33.9 g/dL (31.5-36.5); Mean Corpuscular Volume 89 fL (80-100); NEUTROPHILS ABSOLUTE AUTO 5.01 K/mm3 (1.96-9.15); NEUTROPHILS PERCENT AUTO 63 % (41-73); Platelet Count 133 K/mm3 (150-400); RDW Coefficient Variation 15.3 % (11.7-14.2); RDW Standard Deviation 50.2 fL (35.1-46.3); Red Blood Cell Count 4.72 M/mm3 (4.30-5.90); White Blood Cell Count 7.94 K/mm3 (4.00-11.30)
[2023-03-24 16:01] LABS: Albumin, Blood 3.7 g/dL (3.4-5.0); Albumin/Globulin Ratio 1.2 (0.8-1.8); Bilirubin, Total 0.8 mg/dL (0.1-1.0); Bun/Creatinine Ratio 15.2 (12.0-20.0); Calcium, Blood 8.7 mg/dL (8.5-10.1); Creatinine, Blood 1.38 mg/dL (0.60-1.20); Potassium, Blood 4.4 mmol/L (3.5-5.5); Total Protein, Blood 6.7 g/dL (6.4-8.2)
[2023-03-24 20:01] LABS: International Normalized Ratio 1.03; Prothrombin Time Results 10.8 Sec (9.7-11.5)
[2023-03-24 21:41] LABS: Anti-Xa UFH, PHA Monitoring <0.10 IU/mL
[2023-03-24 23:15] VITALS: BP 126/79
[2023-03-25 03:43] VITALS: BP 128/75
[2023-03-25 04:04] LABS: BASOPHILS ABSOLUTE AUTO 0.03 K/mm3 (0.00-0.23); BASOPHILS PERCENT AUTO 0 % (0-2); EOSINOPHILS ABSOLUTE AUTO 0.14 K/mm3 (0.00-0.68); EOSINOPHILS PERCENT AUTO 2 % (0-6); Hematocrit 42.1 % (37.0-53.0); Hemoglobin 14.2 g/dL (13.5-17.5); IMMATURE GRAN ABSOLUTE AUTO 0.02 K/mm3 (0.00-0.10); IMMATURE GRAN PERCENT AUTO 0 % (0-1); LYMPHOCYTES ABSOLUTE AUTO 2.19 K/mm3 (0.84-5.20); LYMPHOCYTES PERCENT AUTO 32 % (21-46); MONOCYTES ABSOLUTE AUTO 0.52 K/mm3 (0.16-1.47); MONOCYTES PERCENT AUTO 8 % (4-13); Mean Corpuscular HGB 30.7 pg (26.0-34.0); Mean Corpuscular HGB Conc 33.7 g/dL (31.5-36.5); Mean Corpuscular Volume 91 fL (80-100); Mean Platelet Volume 9.7 fL (9.1-12.4); NEUTROPHILS ABSOLUTE AUTO 3.91 K/mm3 (1.96-9.15); NEUTROPHILS PERCENT AUTO 57 % (41-73); Platelet Count 124 K/mm3 (150-400); RDW Coefficient Variation 15.6 % (11.7-14.2); RDW Standard Deviation 51.1 fL (35.1-46.3); Red Blood Cell Count 4.63 M/mm3 (4.30-5.90); White Blood Cell Count 6.81 K/mm3 (4.00-11.30)
[2023-03-25 04:33] LABS: Alanine Aminotransfer (ALT/SGP 23 U/L (12-78); Albumin, Blood 3.5 g/dL (3.4-5.0); Albumin/Globulin Ratio 1.3 (0.8-1.8); Alk Phos 92 U/L (50-136); Anion Gap 3 mmol/L (6-16); Aspartate Aminotrans (AST/SGOT 17 U/L (12-37); Bilirubin, Total 0.6 mg/dL (0.1-1.0); Blood Urea Nitrogen 18 mg/dL (8-24); Bun/Creatinine Ratio 16.1 (12.0-20.0); CHOL/HDL RATIO 2.8; CO2, Blood 29 mmol/L (21-32); Calcium, Blood 8.4 mg/dL (8.5-10.1); Chloride, Blood 107 mmol/L (98-108); Cholesterol 119 mg/dL (50-200); Creatinine, Blood 1.12 mg/dL (0.60-1.20); Globulin, Blood 2.7 g/dL (2.2-4.0); Glomerular Filtration Rate 69 (60-); Glucose, Blood 233 mg/dL (70-99); HDL Cholesterol 42 mg/dL (>39); LDL/HDL RATIO 1.5; Low Density Lipoprotein Chol 62 mg/dL (0-110); Magnesium, Blood 2.2 mg/dL (1.6-2.4); Potassium, Blood 4.4 mmol/L (3.5-5.5); Sodium, Blood 139 mmol/L (136-145); Total Protein, Blood 6.2 g/dL (6.4-8.2); Triglycerides 76 mg/dL (30-160); Very Low Density Lipoprot Chol 15 mg/dL (6-32)
--- NOTE | 2023-03-25 06:33 | NUR ---
SHIFT SUMMARY PATIENT ARRIVED TO PCU 18 VIA STRETCHER. PATIENT ALERT AND ORIENTED X4. ABLE TO SELF TRANSFER AND AMBULATE WITH MINIMAL ASSISTANCE. PATIENT HAS NOT REPORTED ANY CHEST PAIN SINCE ADMIT. PATIENT DOES HAVE ESSENTIAL TREMMORS, PATIENT REPORTS THIS IS NORMAL FOR HIM. PATIENT IS ON HIS HOME DOSE OF 4 LITERS O2 VIA NC WITH SPO2 IN THE HIGH 90'S. DENIES SHORTNESS OF BREATH. NO ACUTE ISSUES NOTED OVERNIGHT. WILL CONTINUE TO MONITOR. CALL LIGHT WITHIN REACH.
[2023-03-25 07:22] VITALS: BP 124/86
--- NOTE | 2023-03-25 07:33 | NUR ---
Bedside report from ANTHONY Irwin. The pt is alert, oriented and conversant. Ambulatory to the bathroom with standby assistance, and reports that he had no symptoms with this activity. Heparin gtt dose adjusted and verified with off going RN at time of bedside report. Sitting on side of bed at this time, denies any symptoms. Wearing oxygen at 4 l/min, which is his reported home dose for COPD.
[2023-03-25 13:08] VITALS: BP 118/75
--- NOTE | 2023-03-25 14:46 | NUR ---
Pt was ambulatory in the hallway on home oxygen dose of 4 l/min. He tolerated it very well, remained in sinus rhythm, rate in 90s during the activity. Denies neither symptoms nor dyspnea while walking. He does have essential tremors he states, and sometimes feels wobbly while walking due to his neuropathy he said. He walked while holding on to his IV pole with a staff member alongside of him and felt fine, he said. Call to Dr. Neri regarding CBG OF 415 at this time. Anticipate new orders.
--- NOTE | 2023-03-25 16:00 | NUR ---
Pt appears to be sleeping.
--- NOTE | 2023-03-25 16:36 | NUR ---
TELEMETRY CHANGES NOTED ; Call to Dr. Kumar to inform him of changes noted; The pt was in the bathroom at the time, completely asymptomatic and vital signs are stable. Pt accidentally pulled IV out of his right hand. Restarted IV and heparin gtt was only off for 15 minutes. Pt is sitting up in chair at this time.
[2023-03-25 16:38] VITALS: BP 124/88
[2023-03-25 19:33] VITALS: BP 117/85
[2023-03-26] VITALS (7 sets, daily range): BP systolic 96–135; BP diastolic 51–122
--- NOTE | 2023-03-26 04:24 | NUR ---
ASSUMED CARE OF PT AT APROX 0400. PT APPEARS TO BE RESTING COMFORTABLY AT THIS TIME.
--- NOTE | 2023-03-26 06:53 | NUR ---
SHIFT SUMMARY PATIENT ALERT AND ORIENTED X4, STAND BY ASSIST TO THE RESTROOM. PATIENT DENIES CHEST PAIN AND SHORTNESS OF BREATH. ON HOME DOSE OF 4 LITERS O2 VIA NC. VITAL SIGNS STABLE. NO ACUTE ISSUES NOTED OVERNIGHT. WILL CONTINUE TO MONITOR. CALL LIGHT WITHIN REACH.
--- NOTE | 2023-03-26 08:40 | NUR ---
Dr. Neri here, spoke with him regarding the patient. Will hold Tiana.
--- NOTE | 2023-03-26 11:21 | NUR ---
Pt was ambulatory in the hallway with the PCT; he says that he felt great, had no pain/dyspnea and is feeling fine now, too.
--- NOTE | 2023-03-26 19:29 | NUR ---
Bedside report given to Latha Reece RN.
[2023-03-27 03:21] VITALS: BP 112/72
[2023-03-27 04:17] LABS: BASOPHILS ABSOLUTE AUTO 0.03 K/mm3 (0.00-0.23); BASOPHILS PERCENT AUTO 0 % (0-2); EOSINOPHILS ABSOLUTE AUTO 0.09 K/mm3 (0.00-0.68); EOSINOPHILS PERCENT AUTO 1 % (0-6); Hematocrit 40.8 % (37.0-53.0); Hemoglobin 13.3 g/dL (13.5-17.5); IMMATURE GRAN ABSOLUTE AUTO 0.03 K/mm3 (0.00-0.10); IMMATURE GRAN PERCENT AUTO 0 % (0-1); LYMPHOCYTES ABSOLUTE AUTO 2.21 K/mm3 (0.84-5.20); LYMPHOCYTES PERCENT AUTO 31 % (21-46); MONOCYTES PERCENT AUTO 8 % (4-13); Mean Corpuscular HGB Conc 32.6 g/dL (31.5-36.5); Mean Corpuscular Volume 92 fL (80-100); Mean Platelet Volume 9.9 fL (9.1-12.4); NEUTROPHILS ABSOLUTE AUTO 4.25 K/mm3 (1.96-9.15); NEUTROPHILS PERCENT AUTO 59 % (41-73); Platelet Count 121 K/mm3 (150-400); RDW Coefficient Variation 15.6 % (11.7-14.2); RDW Standard Deviation 52.5 fL (35.1-46.3); Red Blood Cell Count 4.44 M/mm3 (4.30-5.90); White Blood Cell Count 7.21 K/mm3 (4.00-11.30)
--- NOTE | 2023-03-27 04:36 | NUR ---
SHIFT SUMMARY NO ACUTE CHANGES OVERNIGHT. A&O X4. ABLE TO MAKE NEEDS KNOWN. SR WITH BBB NOTED ON MONITOR WITH HR 70-80'S. BP STABLE. HEP GTT INFUSING PER EMAR. PT INDEPENDENT WITH ADL'S. DENIES CHEST PAIN/PRESSURE. ON 4L VIA NC, WHICH IS BASELINE. BED IN LOWEST POSITION AND CALL LIGHT WITHIN REACH. THIS RN WILL REPORT TO ONCOMING DAYSHIFT RN.
[2023-03-27 05:02] LABS: Bun/Creatinine Ratio 19.2 (12.0-20.0); Calcium, Blood 8.7 mg/dL (8.5-10.1); Creatinine, Blood 1.56 mg/dL (0.60-1.20); Potassium, Blood 4.5 mmol/L (3.5-5.5)
[2023-03-27 08:05] VITALS: BP 114/93
[2023-03-27] MEDS ORDERED: LOSA25 PO (10:27)
[2023-03-27] MEDS ORDERED: METO25ER PO (10:28)
--- NOTE | 2023-03-27 11:11 | NUR ---
DISCHARGE PT DISCHARGED HOME FROM UNIT AT APROX 1111. PT GIVEN WRITTEN AND VERBAL DC INSTRUCTIONS AND VERBALIZED UNDERSTANDING OF THESE INSTRUCTIONS. IV REMOVED X'S 2, TOLERATED WELL. PT DOES NOT HAVE HOME O2 WITH HIM. STATES THAT HE CAN GO SHORT DISTANCES WITHOUT IT. WC TO CAR.
== END 2023-03-27 11:09 | disposition home or self-care (01) | DRG 282 ==
LOC: ER 15:17 → PCU 20:02
PROVIDERS: Emergency Medicine; Internal Medicine; ADMIT Student in an Organized Health Care Education/Training Program
DX: I21.4 Non-ST elevation (NSTEMI) myocardial infarction (principal); N18.30 Chronic kidney disease, stage 3 unspecified; J44.9 Chronic obstructive pulmonary disease, unspecified; Z66 Do not resuscitate; I25.10 Atherosclerotic heart disease of native coronary artery without angina pectoris; E78.5 Hyperlipidemia, unspecified; I12.9 Hypertensive chronic kidney disease with stage 1 through stage 4 chronic kidney disease, or unspecified chronic kidney disease; E11.22 Type 2 diabetes mellitus with diabetic chronic kidney disease; E11.42 Type 2 diabetes mellitus with diabetic polyneuropathy; I95.9 Hypotension, unspecified; Z88.8 Allergy status to other drugs, medicaments and biological substances; Z79.899 Other long term (current) drug therapy; Z79.4 Long term (current) use of insulin; Z95.1 Presence of aortocoronary bypass graft; Z79.82 Long term (current) use of aspirin; Z79.51 Long term (current) use of inhaled steroids; I25.2 Old myocardial infarction; Z87.891 Personal history of nicotine dependence; Z99.81 Dependence on supplemental oxygen
CPT/HCPCS: 36415; 71045; 80048; 80053; 80061; 80400; 82533; 82947; 83036; 83735; 84443; 84484; 85025; 85520; 85610; 85730; 93005; 93010; 94640; 94664; 94760; 94762; 96360; 99285-25; A9270; J0834; J1644; J1815; J7030

== ENCOUNTER 2023-05-28 10:01 | Day surgery (SDC) | payer OTHER ==
[~2023-05-28] VITALS: Ht 177.8 cm; Wt 92.3 kg
[~2023-05-28 10:01] MED LIST changes: +LOSA25 PO; +METO25ER PO
--- NOTE | 2023-05-28 11:22 | NUR ---
05/28/23 1122 Nicole Fabian PROPARACAINE: 1105 GERTRUDE: 1106
[2023-05-28 12:07] VITALS: BP 137/87
== END 2023-05-28 12:27 | disposition home or self-care (01) ==
LOC: ORSCSDS 10:01
PROVIDERS: Ophthalmology
PROC: 08RK3JZ Replacement of Left Lens with Synthetic Substitute, Percutaneous Approach (ICD-10-PCS; principal; 2023-05-28 11:30)
DX: E11.36 Type 2 diabetes mellitus with diabetic cataract (principal); H25.12 Age-related nuclear cataract, left eye; H52.202 Unspecified astigmatism, left eye; E11.22 Type 2 diabetes mellitus with diabetic chronic kidney disease; N18.30 Chronic kidney disease, stage 3 unspecified; I25.10 Atherosclerotic heart disease of native coronary artery without angina pectoris; E78.5 Hyperlipidemia, unspecified; J44.9 Chronic obstructive pulmonary disease, unspecified; Z86.73 Personal history of transient ischemic attack (TIA), and cerebral infarction without residual deficits; Z79.84 Long term (current) use of oral hypoglycemic drugs; Z79.4 Long term (current) use of insulin; Z79.82 Long term (current) use of aspirin; Z79.899 Other long term (current) drug therapy
CPT/HCPCS: 82947; J2250; J3010; J3301; J7040; V2632

== ENCOUNTER 2023-06-12 02:31 | Observation (INO) | payer OTHER ==
[2023-06-12] VITALS (10 sets, daily range): BP systolic 113–160; BP diastolic 73–102
[~2023-06-12] VITALS: Ht 177.8 cm; Wt 90.0 kg
[2023-06-12 03:33] LABS: BASOPHILS ABSOLUTE AUTO 0.03 K/mm3 (0.00-0.23); BASOPHILS PERCENT AUTO 0 % (0-2); EOSINOPHILS ABSOLUTE AUTO 0.17 K/mm3 (0.00-0.68); EOSINOPHILS PERCENT AUTO 2 % (0-6); Hemoglobin 14.5 g/dL (13.5-17.5); IMMATURE GRAN ABSOLUTE AUTO 0.04 K/mm3 (0.00-0.10); IMMATURE GRAN PERCENT AUTO 0 % (0-1); LYMPHOCYTES PERCENT AUTO 23 % (21-46); MONOCYTES ABSOLUTE AUTO 0.81 K/mm3 (0.16-1.47); MONOCYTES PERCENT AUTO 8 % (4-13); Mean Corpuscular HGB 29.2 pg (26.0-34.0); Mean Corpuscular Volume 89 fL (80-100); NEUTROPHILS ABSOLUTE AUTO 6.95 K/mm3 (1.96-9.15); NEUTROPHILS PERCENT AUTO 67 % (41-73); Platelet Count 125 K/mm3 (150-400); RDW Coefficient Variation 14.6 % (11.7-14.2); RDW Standard Deviation 46.5 fL (35.1-46.3); Red Blood Cell Count 4.97 M/mm3 (4.30-5.90)
[2023-06-12 04:00] LABS: Albumin, Blood 3.5 g/dL (3.4-5.0); Albumin/Globulin Ratio 1.3 (0.8-1.8); Bilirubin, Total 0.5 mg/dL (0.1-1.0); Bun/Creatinine Ratio 21.9 (12.0-20.0); Creatinine, Blood 1.37 mg/dL (0.60-1.20); Globulin, Blood 2.7 g/dL (2.2-4.0); Potassium, Blood 4.5 mmol/L (3.5-5.5); Total Protein, Blood 6.2 g/dL (6.4-8.2)
[2023-06-12] MEDS ORDERED: Aspirin 81 MG Chew PO ONE (07:00)
[2023-06-12] MEDS ORDERED: FLU VACC QS2023-24(6MOS UP)/PF 60 MCG/0.5 ML SYRINGE IM SCH (07:40)
[2023-06-12 08:34] LABS: Anti-Xa UFH, PHA Monitoring <0.10 IU/mL; International Normalized Ratio 0.97; Prothrombin Time Results 10.2 Sec (9.7-11.5)
[2023-06-12] MEDS ORDERED: Heparin Sodium,Porcine/0.5 NS 500 ML IV SCH (08:40)
[2023-06-12] MEDS ORDERED: Metoprolol Succinate 50 MG TABCR PO SCH ×2 (11:00→22:00)
[2023-06-12] MEDS ORDERED: Aspirin 81 MG Chew PO SCH (11:00)
[2023-06-12] MEDS ORDERED: Clopidogrel Bisulfate 75 MG Tab PO SCH (11:00)
[2023-06-12] MEDS ORDERED: Albuterol HFA200 ACT/6.7 GM INH INH PRN (11:25)
[2023-06-12] MEDS ORDERED: Insulin Regular 100 UNIT/ML 10ML Vial SC SCH (12:00)
--- NOTE | 2023-06-12 16:30 | NUR ---
DR. BUNCH BY TO SEE PATIENT, PATIENT OKAY TO EAT AND DRINK. PLAN FOR MED MANAGE.
--- NOTE | 2023-06-12 16:53 | NUR ---
[facility] HOME MED LIST
[2023-06-12] MEDS ORDERED: Insulin Human Lispro 100 Units/ML 3ML Syringe SC SCH (17:30)
[2023-06-12] MEDS ORDERED: VITAMIN D31000 UNI1 PO (18:00)
[2023-06-12] MEDS ORDERED: Misc. Injectable SC SCH (18:00)
[2023-06-12] MEDS ORDERED: B-12500 MC2 PO (18:01)
[2023-06-12] MEDS ORDERED: Isosorbide Mono30 MG PO (18:05)
[2023-06-12] MEDS ORDERED: KETO.5OPSO (18:06)
[2023-06-12] MEDS ORDERED: OFLOXACIN5 M9 (18:09)
[2023-06-12] MEDS ORDERED: Nitroglycerin 0.4 MG SUBL SL PRN (18:50)
[2023-06-12] MEDS ORDERED: Isosorbide Mononitrate 30 MG TABCR PO SCH (19:00)
[2023-06-12] MEDS ORDERED: Ketorolac 0.5% Opth Soln BTL LEFTEYE PRN (19:15)
--- NOTE | 2023-06-12 19:24 | NUR ---
CHEST PAIN: PATIENT HAVING 4/10 CHEST PAIN. NON RADIATING, CENTRAL CHEST. PATIENT LAYING IN BED, NO ACTIVITY PREFORMED. NO CHANGES FROM PRODUCT DEVELOPMENT COORDINATOR. THIS RN PLACED CALL TO DR. CARDENAS. ORDERS FOR EKG, NITRO TABLET AND HOME IMDUR. EKG COMPLETED AND IN CHART. 1 TAB OF NITRO GIVEN WITH RECURRENT BLOOD PRESSURES BEING TAKEN. HOME IMDUR DOSE GIVEN. PAIN IMPROVED TO 2/10. BEDSIDE REPORT GIVEN TO MARIA EUGENIA CRUZ. PATIENT ON 2L BASELINE NASAL CANNULA SATING LOW-MID 90'S. USING URINAL TO VOID. EATING AND VOIDING WNL. ALERT AND ORIENTD X4. VITALS SIGNS STABLE. MED REC COMPLET[facility]. PATIENT STATES HE HAD LEFT EYE SURGERY RECENTLY, EYE DROPS ORDERED. ACHS BLOOD SUGARS. CALL LIGHT IN REACH. PATIENT IND AT TURNING IN BED. ONE PERSON ASSIST. HEPARIN GTT INFUSING PER EMAR.
[2023-06-12] MEDS ORDERED: Insulin Glargine-Yfgn 100 Unit/mL 3 ML SYR SC SCH (20:00)
[2023-06-12] MEDS ORDERED: Atorvastatin 40 MG Tab PO SCH (21:00)
[2023-06-12] MEDS ORDERED: Ofloxacin 0.3% Opth Soln 5 ML LEFTEYE SCH (21:00)
[2023-06-12] MEDS ORDERED: Ranolazine 500 MG ER Tablet PO SCH (21:00)
[2023-06-12] MEDS ORDERED: Tamsulosin HCl 0.4 MG Cap PO SCH (21:00)
[2023-06-12] MEDS ORDERED: TraZODone HCl 50 MG Tab PO SCH (21:00)
[2023-06-12] MEDS ORDERED: Acetaminophen 325 MG TABLET PO PRN (21:20)
[2023-06-13] VITALS: BP 112/78
[2023-06-13 04:00] VITALS: BP 112/56
--- NOTE | 2023-06-13 06:07 | NUR ---
SHIFT SUMMARY PATIENT ALERT AND ORIENTED X4. PATIENT HAD 4/10 CHEST PAIN DURING BEDSIDE SHIFT REPORT WHICH WAS RESOLVED WITH ONE DOSE OF NITROGLYCERIN. PATIENT ALSO HAD A HEADACHE AND MEDICATED PER EMAR. HAD NO COMPLAINTS OF SHORTNESS OF BREATH, ON 2 LITERS O2 VIA NC WITH SPO2 >90%. VITAL SIGNS STABLE. WILL CONTINUE TO MONITOR. CALL LIGHT WITHIN REACH.
[2023-06-13] MEDS ORDERED: Insulin Human Lispro 100 Units/ML 3ML Syringe SC SCH (07:30)
[2023-06-13 07:41] VITALS: BP 101/75
[2023-06-13] MEDS ORDERED: Aspirin 81 MG Chew PO SCH (08:00)
[2023-06-13 08:27] VITALS: BP 113/85
--- NOTE | 2023-06-13 08:47 | NUR ---
ECHO BEING DONE AT THIS TIME
[2023-06-13] MEDS ORDERED: DULoxetine HCL 60 MG Capsule DR PO SCH (09:00)
[2023-06-13] MEDS ORDERED: Losartan Potassium 25 MG Tab PO SCH (09:00)
[2023-06-13] MEDS ORDERED: Metoprolol Succinate 50 MG TABCR PO SCH ×2 (09:00)
[2023-06-13] MEDS ORDERED: Torsemide 20 MG TAB PO SCH (09:00)
[2023-06-13] MEDS ORDERED: Docusate Sodium 100 MG Cap PO SCH (09:00)
[2023-06-13] MEDS ORDERED: Isosorbide Mononitrate 60 MG TABCR PO SCH (09:00)
--- NOTE | 2023-06-13 09:49 | NUR ---
AM NOTE: PATIENT ALERT AND ORIENTED X4. PERRLA, WEARING GLASSES. UP WITH SBA/ONE PERSON. MOVING ALL EXTREMITIES WNL. CHRONIC BACK PAIN RELIEVED WITH PO TYLENOL. RECENT LEFT EYE CATARACT SURG, EYE DROPS BID. WEARING 2L BASELINE O2 SATING MID 90'S. DENIES SOB. LUNGS SOUNDING CLEAR AND DIM. EVEN AND UNLABORED RESPIRATIONS. TELE SHOWING SR WITH HR 80-90'S. DENIES HAVING CHEST PAIN/PRESSURE THIS AM. EPISODE OF CHEST PAIN LAST NIGHT. PPP. BP STABLE. NO EDEMA NOTED. HEPARIN GTT CONTINUES TO INFUSE. ECHO COMPLETED THIS AM, RESULTS PENDING. BOWEL TONES PRESENT. BOWEL MOVEMENT THIS AM. EATING AND VOIDING WNL. DENIES ABDOMINAL PAIN/NAUSEA. EX SHANI AT BEDSIDE THIS AM. CALL LIGHT IN REACH. DENIES NEEDS AT THIS TIME.
[2023-06-13 10:12] VITALS: BP 107/65
--- NOTE | 2023-06-13 10:16 | NUR ---
GoYoDeo NOTIFIED THIS RN OF POSSIBLE ST ELEVATION IN V LEAD. DR. PAL CALLED. ORDERS FOR EKG AND TROPONIN. EKG COMPLETED AND SHOWING SLIGHT IMPROVEMENT OF ST FROM PREVIOUS NIGHT. DR. PAL CALLED TO UPDATE. EKG PLACED IN CHART. PATIENT CONTINUES TO BE FREE OF CHEST PAIN.
[2023-06-13 11:06] VITALS: BP 104/68
[2023-06-13] MEDS ORDERED: PREDNISOLONE ACE5 ML (11:24)
--- NOTE | 2023-06-13 12:21 | NUR ---
CALL PLACED TO DR. PAL TO UPDATE ON ECHO RESULTS AND MOST RECENT TROPONIN LAB. PLAN TO DISCHARGE THIS AFTERNOON. PATIENT REMAINS CHEST PAIN FREE. AFTERNOON VITALS STABLE. HEPARIN GTT CONTINUES PER EMAR.
--- NOTE | 2023-06-13 15:46 | NUR ---
DISCHARGE: NO ACUTE CHANGES, THIS RN EDUCATED ON DISCHARGE INFORMATION WHICH INCLUDED, NEW MEDICATIONS CHANGES VIA DOSE OF METOPROLOL AND TIMING OF IMDUR, WELL SIGNS AND SYMPTOMS OF WHEN TO RETURN, AND FOLLOW UP APPOINTMENTS. IV'S REMOVED WNL. PATIENT EX IN TO TENNIS BALL COVER CEMENTER. PATIENT LEFT UNIT WITH ALL PERSONAL BELONGINGS VIA WHEELCHAIR.
[2023-06-13] MEDS ORDERED: Ofloxacin 0.3% Opth Soln 5 ML LEFTEYE SCH (21:00)
== END 2023-06-13 14:30 | disposition home or self-care (01) ==
LOC: ER 02:31 → ERHOLD 02:32 → PCU 15:02
PROVIDERS: Physician Assistant; ADMIT Hospitalist
DX: I25.118 Atherosclerotic heart disease of native coronary artery with other forms of angina pectoris (principal); J44.9 Chronic obstructive pulmonary disease, unspecified; I21.4 Non-ST elevation (NSTEMI) myocardial infarction; E11.22 Type 2 diabetes mellitus with diabetic chronic kidney disease; I12.9 Hypertensive chronic kidney disease with stage 1 through stage 4 chronic kidney disease, or unspecified chronic kidney disease; N18.30 Chronic kidney disease, stage 3 unspecified; Z99.81 Dependence on supplemental oxygen; E11.42 Type 2 diabetes mellitus with diabetic polyneuropathy; Z87.891 Personal history of nicotine dependence; Z88.8 Allergy status to other drugs, medicaments and biological substances; Z95.1 Presence of aortocoronary bypass graft; Z79.4 Long term (current) use of insulin; Z79.899 Other long term (current) drug therapy
CPT/HCPCS: 36415; 71046; 80053; 82947; 84484; 85025; 85520; 85610; 85730; 93005; 93010; 93306; 96365; 96366; 99285-25; A9270; G0378; J1644; J1815